=== PATIENT | male | born 1990 | race Caucasian/White ===

== ENCOUNTER 2024-09-03 23:16 | Observation (INO) | payer BC ==
[2024-09-03] MEDS ORDERED: DILTIAZEM 125 MG in SODIUM CHLORIDE 0.9% 100 ML IV SCH (23:45)
[2024-09-04] MEDS: ADENOSINE 3 MG/ML 2 ML VIAL IVP STA ×3 (00:04→00:05)
[2024-09-04] MEDS: SODIUM CHLORIDE 0.9% 1,000 ML IV STA (00:05)
[2024-09-04] MEDS: DILTIAZEM DRIP BOLUS FROM BAG 1 MG SOLN IV ONE (00:10)
[2024-09-04 00:15] LABS: Basophils # (A) 0.1 k/uL (0-0.2); Basophils % (A) 1 %; Eosinophils # (A) 0.1 k/uL (0-0.7); Eosinophils % (A) 1 %; HCT 46.5 % (39.0-53.0); HGB 15.3 gm/dL (13.0-17.5); Lymphocytes % (A) 29 %; MCH 28.7 pg (25.0-35.0); MCV 87.1 fL (80.0-100.0); Mean Platelet Volume 6.6; Monocytes # (A) 0.6 k/uL (0-1.0); Monocytes % (A) 5 %; Neutrophils # (A) 6.4 k/uL (1.3-7.7); Neutrophils % (A) 62 %; Platelet Count 339 k/uL (150-450); RBC 5.33 m/uL (4.30-5.90); RDW 13.2 % (11.5-15.5); WBC 10.3 k/uL (3.8-10.6)
[2024-09-04] MEDS: DILTIAZEM 125 MG in SODIUM CHLORIDE 0.9% 100 ML IV SCH (00:19)
[2024-09-04] MEDS: MAGNESIUM SULFATE-D5W PMX 2 GM in DEXTROSE/WATER 1 100ML.BAG IVPB STA (00:22)
[2024-09-04 00:26] LABS: Partial Thromboplastin Time 22.1 sec (22.0-30.0); Prothrombin Time 10.7 sec (10.0-12.5)
[2024-09-04 00:27] LABS: ALT 43 U/L (4-49); AST 38 U/L (17-59); African American GFR (CKD) >90 (>60 ml/min/1.73 sqM); Albumin 4.6 g/dL (3.5-5.0); Alkaline Phosphatase 87 U/L (38-126); Anion Gap 9 mmol/L; Blood Urea Nitrogen 15 mg/dL (9-20); Calcium 9.2 mg/dL (8.4-10.2); Carbon Dioxide 21 mmol/L (22-30); Chloride 109 mmol/L (98-107); Glucose 116 mg/dL (74-99); Magnesium 1.8 mg/dL (1.6-2.3); Non-African American GFR(CKD) >90 (>60 ml/min/1.73 sqM); Potassium 3.7 mmol/L (3.5-5.1); Sodium 139 mmol/L (137-145); Total Bilirubin 0.9 mg/dL (0.2-1.3); Total Protein 8.2 g/dL (6.3-8.2)
--- NOTE | 2024-09-04 00:37 | ED ---
Dizziness HPI - General Chief Complaint: Syncope Stated Complaint: Syncope Time Seen by Provider: 09/03/24 23:31 Source: patient Mode of arrival: ambulatory Limitations: no limitations - History of Present Illness Initial Comments: Patient is a 34-year-old male with past medical history of COPD presenting today for syncopal episode. Patient states at home grocery stopping started feeling heavy in his legs and lost consciousness. Did not hit his head. It was out for about 30 seconds no seizure activity noted. No history of seizures. No tongue biting or urinary incontinence. States he has felt palpitations since 1:00 this afternoon and attributed them to anxiety. States he is starting to feel improved though did feel lightheaded and dizzy. He denies any chest pain or shortness of breath. Denies nausea vomiting or abdominal pain. Denies recent fevers or chills. No history of CAD/ACS. Does a current smoker - Related Data Previous Rx's Medication Instructions Recorded Aspirin 81 mg PO DAILY tab 09/05/24 Metoprolol Succinate (ER) [Toprol 25 mg PO DAILY #90 tab 09/05/24 XL] Allergies Allergy/AdvReac Type Severity Reaction Status Date / Time No Known Allergies Allergy Verified 09/04/24 09:15 Review of Systems ROS Statement: Those systems with pertinent positive or pertinent negative responses have been documented in the HPI. ROS Other: All systems not noted in ROS Statement are negative. Past Medical History Past Medical History: No Reported History History of Any Multi-Drug Resistant Organisms: None Reported Additional Past Surgical History / Comment(s): varicose vein removal 2022 left lower extremity, high function Autism Past Psychological History: No Psychological Hx Reported, ADD/ADHD, Depression Smoking Status: Current some day smoker Past Alcohol Use History: Rare Past Drug Use History: Marijuana General Exam - General Exam Comments Initial Comments: PE: CONSTITUTIONAL: No apparent distress, well appearing SKIN: Warm, pale, damp, no jaundice, hives or petechiae EYES: Pupils are equally round, extraocular movements intact without nystagmus, clear conjunctiva, non-icteric sclera HENT: Normocephalic, atraumatic, moist mucus membranes, oropharynx clear without exudates NECK: , Full range of motion, normal appearance PULMONARY: Clear to auscultation without wheezes, rhonchi, or rales, normal excursion, no accessory muscle use and no stridor CARDIOVASCULAR: Tachycardia regularly rhythm, normal S1 and S2. No appreciated murmurs, rubs or gallops. Strong radial pulses with intact distal perfusion. No lower extremity edema GASTROINTESTINAL: Soft, active bowel sounds throughout, non-tender, non- distended, no palpable masses, no rebound or guarding. No hepatosplenomegaly MUSCULOSKELETAL: Extremities have no gross deformity, no edema, redness, or swelling. No calf swelling NEUROLOGIC:_a/o x 3, GCS 15, normal mentation and speech. Moves all extremities x 4 without motor or sensory deficit PSYCHIATRIC:_normal mood and affect, thought process is clear and linear Limitations: no limitations Course Vital Signs 09/03/24 09/04/24 09/04/24 23:19 00:33 01:00 EDT Temperature 97.5 F L Pulse Rate 165 H 160 H 161 H Pulse Rate [ Pulse Oximetery ] Respiratory 20 20 16 Rate Blood Pressure 118/84 105/63 103/65 Blood Pressure [Left Arm] O2 Sat by Pulse 98 100 100 Oximetry 09/04/24 09/04/24 09/04/24 01:30 EDT 01:12 EST 02:05 Temperature Pulse Rate 110 H 114 H 114 H Pulse Rate [ Pulse Oximetery ] Respiratory 20 18 18 Rate Blood Pressure 95/66 95/69 95/69 Blood Pressure [Left Arm] O2 Sat by Pulse 97 97 97 Oximetry 09/04/24 09/04/24 09/04/24 03:03 04:39 06:28 Temperature Pulse Rate 99 101 H 85 Pulse Rate [ Pulse Oximetery ] Respiratory 14 16 12 Rate Blood Pressure 103/62 91/57 119/89 Blood Pressure [Left Arm] O2 Sat by Pulse 94 L 96 95 Oximetry 09/04/24 09/04/24 09/04/24 07:55 08:12 12:55 Temperature 97.6 F 97.7 F Pulse Rate 83 89 Pulse Rate [ Pulse Oximetery ] Respiratory 15 17 Rate Blood Pressure 120/90 111/81 Blood Pressure [Left Arm] O2 Sat by Pulse 96 96 96 Oximetry 09/04/24 09/04/24 09/04/24 15:13 18:41 19:59 Temperature 97.7 F Pulse Rate 85 92 95 Pulse Rate [ Pulse Oximetery ] Respiratory 18 16 18 Rate Blood Pressure 107/69 119/74 127/77 Blood Pressure [Left Arm] O2 Sat by Pulse 98 97 97 Oximetry 09/04/24 20:00 Temperature 97.6 F Pulse Rate Pulse Rate [ 87 Pulse Oximetery ] Respiratory 16 Rate Blood Pressure Blood Pressure 133/91 [Left Arm] O2 Sat by Pulse 98 Oximetry EKG Findings - EKG Comments: EKG Findings:: Supraventricular tachycardia, rate 162 bpm, AR interval unable to determine, QRS duration 96 ms, QT/QTc 284/374 ms, left axis deviation, no STEMI, evaluation is limited by rate. Repeat EKG performed 1:57 AM, shows atrial flutter with RVR, rate 108 bpm, QRS duration 113 ms, QT/QTc 345/408 ms, normal axis, no ST elevations or depressions Medical Decision Making - Medical Decision Making Was pt. sent in by a medical professional or institution (SARAHI Taylor, HOSPITAL CHIEF EXECUTIVE OFFICER, urgent care, hospital, or senior living...) When possible be specific @ -No Did you speak to anyone other than the patient for history (EMS, parent, family, police, friend...)? What history was obtained from this source @ -No Did you review nursing and triage notes (agree or disagree)? Why? @ -I reviewed nursing and triage notes Were old charts reviewed (outside hosp., previous admission, EMS record, old EKG, old radiological studies, urgent care reports/EKG's, senior living records)? Report findings @ -Medical records reviewed Differential Diagnosis (chest pain, altered mental status, abdominal pain women, abdominal pain men, vaginal bleeding, weakness, fever, dyspnea, syncope, headache, dizziness, GI bleed, back pain, seizure, CVA, palpatations, mental health, musculoskeletal)? @ -Differential Syncope: Valvular disease, hypertrophic cardiomyopathy, tamponade, arrythmia, ACS, hypovolemia, anemia, seizure, hypoglycemia, this is not meant to be an all- inclusive list. EKG interpreted by me (3pts min.). @ -As above X-rays interpreted by me (1pt min.). @ See below CT interpreted by me (1pt min.). @ -None done U/S interpreted by me (1pt. min.). @ -None done What testing was considered but not performed or refused? (CT, X-rays, U/S, labs)? Why? @ -None What meds were considered but not given or refused? Why? @ -None Did you discuss the management of the patient with other professionals (aura fonseca i.e. , PA, HOSPITAL CHIEF EXECUTIVE OFFICER, lab, RT, psych nurse, case management social worker, police dispatcher, teacher, special assets officer, case filler)? Give summary @ -No Was smoking cessation discussed for >3mins.? @ -No Was critical care preformed (if so, how long)? @ Yes 45 minutes Were there social determinants of health that impacted care today? How? (Homelessness, low income, unemployed, alcoholism, drug addiction, transportation, low edu. Level, literacy, decrease access to med. care, nursing home, rehab)? @ -No Was there de-escalation of care discussed even if they declined (Discuss DNR or withdrawal of care, Hospice)? @ -No What co-morbidities impacted this encounter? (DM, HTN, Smoking, COPD, CAD, Cancer, CVA, ARF, Chemo, Hep., AIDS, mental health diagnosis, sleep apnea, morbid obesity)? @ -None Was patient admitted / discharged? Hospital course, mention meds given and route, prescriptions, significant lab abnormalities, going to OR and other pertinent info. @ -Admission- Patient is at the previous healthy 34-year-old gentleman history of COPD presenting for syncopal episode. Appear to be in SVT on arrival. Blood pres sure stable. Vagal mechanisms were attempted including blowing through a straw and bearing down however patient did not have resolution of tachycardia. Patient was given 6 mg adenosine without resolution of rhythm. 12 mg adenosine was given, patient appeared to be in a flutter briefly and then went back into SVT. Additional 12 mg adenosine given, patient again appeared to go into a flutter briefly and went back into SVT. Patient remained hemodynamically stable throughout this time. Will initiate 20 mg Cardizem bolus and Cardizem drip. Discussed with patient plan for chest x-ray, labs and Cardizem. Patient agreeable plan. Labs reviewed. Grossly within normal limits. Abnormal values not concerning for acute pathology related to presenting complaint. Chest x-ray reviewed, showed cardiomegaly otherwise no consolidations, pleural effusions or pulmonary edema on my review. Patient remained tachycardic despite Cardizem, given 5 mg of Toprol. On my reassessment rate did come down to 110 to 120 bpm shortly after leaving patient's room heart rate went back up to 160. If maintains this will give another dose of metoprolol. At this point plan for admission for persistent tachycardia, patient agreeable with plan. HR did improve prior to admission, ~110, appeared to be in a flutter with RvR. Heparin ordered should patient continue to fail to convert and require electric cardioversion during admission. Discussed case with HOLLIS Mosquera, kindly accepts patient for admission. Undiagnosed new problem with uncertain prognosis? @ -No Drug Therapy requiring intensive monitoring for toxicity (Heparin, Nitro, Insulin, Cardizem)? @ -heparin Were any procedures done? @ -No Diagnosis/symptom? @ SVT, atrial flutter with RvR, syncopee Acute, or Chronic, or Acute on Chronic? @ acute Uncomplicated (without systemic symptoms) or Complicated (systemic symptoms)? @ complicated Side effects of treatment? @ -No Exacerbation, Progression, or Severe Exacerbation? @ -No Poses a threat to life or bodily function? How? (Chest pain, USA, CA, pneumonia, PE, COPD, DKA, ARF, appy, cholecystitis, CVA, Diverticulitis, Homicidal, Suicidal, threat to staff... and all critical care pts) @ -yes - Lab Data Result diagrams: 09/03/24 23:56 09/04/24 11:47 Lab Results 09/03/24 09/03/24 09/03/24 Range/Units 23:56 23:56 23:56 WBC 10.3 (3.8-10.6) k/uL RBC 5.33 (4.30-5.90) m/uL Hgb 15.3 (13.0-17.5) gm/dL Hct 46.5 (39.0-53.0) % MCV 87.1 (80.0-100.0) fL MCH 28.7 (25.0-35.0) pg MCHC 33.0 (31.0-37.0) g/dL RDW 13.2 (11.5-15.5) % Plt Count 339 (150-450) k/uL MPV 6.6 Neutrophils % 62 % Lymphocytes % 29 % Monocytes % 5 % Eosinophils % 1 % Basophils % 1 % Neutrophils # 6.4 (1.3-7.7) k/uL Lymphocytes # 3.0 (1.0-4.8) k/uL Monocytes # 0.6 (0-1.0) k/uL Eosinophils # 0.1 (0-0.7) k/uL Basophils # 0.1 (0-0.2) k/uL PT 10.7 (10.0-12.5) sec INR 1.0 (<1.2) APTT 22.1 (22.0-30.0) sec Sodium 139 (137-145) mmol/L Potassium 3.7 (3.5-5.1) mmol/L Chloride 109 H (98-107) mmol/L Carbon Dioxide 21 L (22-30) mmol/L Anion Gap 9 mmol/L BUN 15 (9-20) mg/dL Creatinine 0.97 (0.66-1.25) mg/dL Est GFR (CKD-EPI)AfAm >90 (>60 ml/min/1.73 sqM) Est GFR (CKD-EPI)NonAf >90 (>60 ml/min/1.73 sqM) Glucose 116 H (74-99) mg/dL Calcium 9.2 (8.4-10.2) mg/dL Magnesium 1.8 (1.6-2.3) mg/dL Total Bilirubin 0.9 (0.2-1.3) mg/dL AST 38 (17-59) U/L ALT 43 (4-49) U/L Alkaline Phosphatase 87 (38-126) U/L Troponin I (0.000-0.034) ng/mL Total Protein 8.2 (6.3-8.2) g/dL Albumin 4.6 (3.5-5.0) g/dL TSH 0.487 (0.465-4.680) mIU/L 09/03/24 Range/Units 23:56 WBC (3.8-10.6) k/uL RBC (4.30-5.90) m/uL Hgb (13.0-17.5) gm/dL Hct (39.0-53.0) % MCV (80.0-100.0) fL MCH (25.0-35.0) pg MCHC (31.0-37.0) g/dL RDW (11.5-15.5) % Plt Count (150-450) k/uL MPV Neutrophils % % Lymphocytes % % Monocytes % % Eosinophils % % Basophils % % Neutrophils # (1.3-7.7) k/uL Lymphocytes # (1.0-4.8) k/uL Monocytes # (0-1.0) k/uL Eosinophils # (0-0.7) k/uL Basophils # (0-0.2) k/uL PT (10.0-12.5) sec INR (<1.2) APTT (22.0-30.0) sec Sodium (137-145) mmol/L Potassium (3.5-5.1) mmol/L Chloride (98-107) mmol/L Carbon Dioxide (22-30) mmol/L Anion Gap mmol/L BUN (9-20) mg/dL Creatinine (0.66-1.25) mg/dL Est GFR (CKD-EPI)AfAm (>60 ml/min/1.73 sqM) Est GFR (CKD-EPI)NonAf (>60 ml/min/1.73 sqM) Glucose (74-99) mg/dL Calcium (8.4-10.2) mg/dL Magnesium (1.6-2.3) mg/dL Total Bilirubin (0.2-1.3) mg/dL AST (17-59) U/L ALT (4-49) U/L Alkaline Phosphatase (38-126) U/L Troponin I 0.023 (0.000-0.034) ng/mL Total Protein (6.3-8.2) g/dL Albumin (3.5-5.0) g/dL TSH (0.465-4.680) mIU/L Disposition Clinical Impression: SVT (supraventricular tachycardia), Atrial flutter with rapid ventricular response Disposition: ADMITTED IP TO THIS HOSP Condition: Stable
--- NOTE | 2024-09-04 00:58 | XR ---
EXAMINATION TYPE: XR chest 2V DATE OF EXAM: 09/04/2024 COMPARISON: NONE HISTORY: Dysrhythmia. TECHNIQUE: Frontal and lateral views of the chest are obtained. FINDINGS: Evaluation slightly suboptimal secondary to patient's large body habitus. Low lung volumes are present. There is no focal air space opacity, pleural effusion, or pneumothorax seen. The cardia c silhouette size is enlarged. The osseous structures are intact. IMPRESSION: Suboptimal study. Cardiomegaly without acute pulmonary process identified. [facility], , 09/04/2024 12:55 AM
[2024-09-04] MEDS: METOPROLOL TARTRATE 5 MG/5 ML VIAL IVP STA (01:16)
[2024-09-04] MEDS: HEPARIN SODIUM 1,000 UN/ML (10ML VL) IV ONE (01:53)
[2024-09-04] MEDS: HEPARIN SOD,PORK IN 0.45% NACL 25,000 UNIT in 0.45% NACL 1 250ML.BAG IV SCH (01:54)
[2024-09-04] MEDS ORDERED: ACETAMINOPHEN TAB 325 MG TAB PO PRN (02:18)
[2024-09-04] MEDS ORDERED: CALCIUM CARBONATE 500 MG CHEWABLE PO PRN (02:18)
[2024-09-04] MEDS ORDERED: PROCHLORPERAZINE 5 MG TAB PO PRN (02:18)
[2024-09-04] MEDS ORDERED: NALOXONE 0.4 MG/ML 1 ML VIAL IV PRN (02:18)
[2024-09-04] MEDS ORDERED: traMADol 50 MG TAB PO PRN (02:18)
[2024-09-04] MEDS ORDERED: MAG HYDROX/AL HYDROX/SIMETH 30 ML CUP PO PRN (02:18)
[2024-09-04 06:22] LABS: Amphetamine Screen,Urine Not Detected (NotDetected); Barbiturate Screen,Urine Not Detected (NotDetected); Benzodiazepines Screen,Urine Not Detected (NotDetected); Cocaine Screen,Urine Not Detected (NotDetected); Methadone Screen, Urine Not Detected (NotDetected); Opiate Screen,Urine Not Detected (NotDetected); Oxycodone Screen, Urine Not Detected (NotDetected); Phencyclidine Screen,Urine Not Detected (NotDetected); Tricyclic Antidepressant,Urine Not Detected (NotDetected); Urn Cannabinoid Scrn Detected (NotDetected)
--- NOTE | 2024-09-04 08:19 | P.CRDCN ---
History of Present Illness Consult date: 09/04/24 History of present illness: The patient is a pleasant 34-year-old gentleman with a past medical history significant for overweight and according to him hypertension not on any medication at home as well as marijuana use. He was brought to the hospital by his yesterday after he did have an episode of syncope witnessed by his . He was in his usual state of health where he was at home trying to stand up and suddenly he felt dizzy and lightheaded and then he lost his consciousness for about 15 seconds. No other cardiovascular symptoms of any chest pain or chest discomfort or shortness of breath. No prior medical or cardiac history including any CAD or hypertension or dyslipidemia or diabetes or history of heart failure or cardiac arrhythmia and never seen by delivery specialist before. He stated that his pressure has been elevated at home not on any medications. According to his he does not snore during the night. He is overweight. He underwent further evaluation including an EKG and that showed what it seems to be an atrial flutter and also he underwent first set of troponin came in to be unremarkable chest x-ray did not show any acute abnormalities. TSH came to be at 0.4 which is borderline low. Subsequently the patient was started on Cardizem IV and converted to normal sinus mechanism and has been maintaining normal sinus mechanism. The physical examination is remarkable for regular rhythm with a soft systolic murmur at the apical area and clear breathing sounds bilaterally and no edema was noted in the lower extremities Assessment Cardiac arrhythmia with atrial flutter An episode of syncope Overweight Marijuana use Plan Rule out thyroid disease Sleep apnea to be ruled as an outpatient Start the patient on beta-khoi orally Does not need any oral anticoagulation since his [id number] score is almost 0. But we will wait on starting the heparin till we get more sets of cardiac enzymes Obtain an echocardiogram with Doppler for further risk stratification Monitor the patient overnight Follow-up with the patient Past Medical History Past Medical History: No Reported History History of Any Multi-Drug Resistant Organisms: None Reported Additional Past Surgical History / Comment(s): varicose vein removal 2022 left lower extremity, high function Autism Past Psychological History: No Psychological Hx Reported, ADD/ADHD, Depression Smoking Status: Current some day smoker Past Alcohol Use History: Rare Past Drug Use History: Marijuana Medications and Allergies Allergies Allergy/AdvReac Type Severity Reaction Status Date / Time No Known Allergies Allergy Verified 09/03/24 23:18 Physical Exam Vitals: Vital Signs Temp Pulse Resp BP Pulse Ox 09/04/24 08:12 96 09/04/24 07:55 97.6 F 83 15 120/90 96 09/04/24 06:28 85 12 119/89 95 09/04/24 04:39 101 H 16 91/57 96 09/04/24 03:03 99 14 103/62 94 L 09/04/24 02:05 114 H 18 95/69 97 09/04/24 01:12 EST 114 H 18 95/69 97 09/04/24 01:30 EDT 110 H 20 95/66 97 09/04/24 01:00 EDT 161 H 16 103/65 100 09/04/24 00:33 160 H 20 105/63 100 09/03/24 23:19 97.5 F L 165 H 20 118/84 98 Intake and Output 09/03/24 09/04/24 09/04/24 23:59 06:59 14:59 Intake Total Output Total Balance Intake: Intake, IV Titration Amount Diltiazem 125 mg In Sodium Chloride 0.9% 100 ml @ 5 MG/HR 5 mls/hr IV .Q24H [facility] Rx#:[id number] Output: Urine Other: Weight Results 09/03/24 23:56 09/03/24 23:56 Cardiac Enzymes 09/03/24 09/03/24 Range/Units 23:56 23:56 AST 38 (17-59) U/L Troponin I 0.023 (0.000-0.034) ng/mL Coagulation 09/03/24 09/04/24 Range/Units 23:56 07:15 PT 10.7 (10.0-12.5) sec APTT 22.1 25.0 (22.0-30.0) sec CBC 09/03/24 Range/Units 23:56 WBC 10.3 (3.8-10.6) k/uL RBC 5.33 (4.30-5.90) m/uL Hgb 15.3 (13.0-17.5) gm/dL Hct 46.5 (39.0-53.0) % Plt Count 339 (150-450) k/uL Comprehensive Metabolic Panel 09/03/24 Range/Units 23:56 Sodium 139 (137-145) mmol/L Potassium 3.7 (3.5-5.1) mmol/L Chloride 109 H (98-107) mmol/L Carbon Dioxide 21 L (22-30) mmol/L BUN 15 (9-20) mg/dL Creatinine 0.97 (0.66-1.25) mg/dL Glucose 116 H (74-99) mg/dL Calcium 9.2 (8.4-10.2) mg/dL AST 38 (17-59) U/L ALT 43 (4-49) U/L Alkaline Phosphatase 87 (38-126) U/L Total Protein 8.2 (6.3-8.2) g/dL Albumin 4.6 (3.5-5.0) g/dL Current Medications Generic Name Dose Route Start Last Admin Trade Name Freq PRN Reason Stop Dose Admin Acetaminophen 650 mg 09/04/24 02:18 Acetaminophen Tab 325 Mg Tab PO Q6HR PRN Mild Pain or Fever > 100.5 Al Hydroxide/Mg Hydroxide 15 ml 09/04/24 02:18 Mag Hydrox/Al Hydrox/Simeth 30 Ml Cup PO Q6HR PRN Indigestion Calcium Carbonate/Glycine 1,000 mg 09/04/24 02:18 Calcium Carbonate 500 Mg Chewable PO Q4HR PRN Dyspepsia Famotidine 20 mg 09/04/24 09:00 Famotidine 20 Mg Tab PO BID JOSEPH Diltiazem HCl 125 mg/ Sodium 125 mls @ 5 mls/hr 09/04/24 00:19 09/04/24 01:26 EST Chloride IV 5 mg/hr .Q24H JOSEPH 5 mls/hr Infusion Protocol 5 MG/HR Heparin Sodium/Sodium Chloride 250 mls @ 10 mls/hr 09/04/24 01:45 EST 09/04/24 01:54 EST 25,000 unit/ Sodium Chloride IV 6.8894 units/kg/hr .Q24H JOSEPH 10 mls/hr Administration Protocol 6.8894 UNITS/KG/HR Naloxone HCl 0.2 mg 09/04/24 02:18 Naloxone 0.4 Mg/Ml 1 Ml Vial IV Q2M PRN Opioid Reversal Prochlorperazine Maleate 5 mg 09/04/24 02:18 Prochlorperazine 5 Mg Tab PO Q8HR PRN Nausea And Vomiting Tramadol HCl 50 mg 09/04/24 02:18 Tramadol 50 Mg Tab PO Q6H PRN Moderate Pain (Scale 4 to 6) Intake and Output 09/03/24 09/04/24 09/04/24 23:59 06:59 14:59 Intake Total Output Total Balance Intake: Intake, IV Titration Amount Diltiazem 125 mg In Sodium Chloride 0.9% 100 ml @ 5 MG/HR 5 mls/hr IV .Q24H [facility] Rx#:[id number] Output: Urine Other: Weight 09/03/24 23:56 09/03/24 23:56
[2024-09-04] MEDS: METOPROLOL TARTRATE 25 MG TAB PO SCH (09:36)
[2024-09-04] MEDS: FAMOTIDINE 20 MG TAB PO SCH (09:36)
[2024-09-04 12:17] LABS: ALT 36 U/L (4-49); AST 29 U/L (17-59); African American GFR (CKD) >90 (>60 ml/min/1.73 sqM); Albumin 3.9 g/dL (3.5-5.0); Alkaline Phosphatase 66 U/L (38-126); Anion Gap 4 mmol/L; Blood Urea Nitrogen 14 mg/dL (9-20); Calcium 8.7 mg/dL (8.4-10.2); Carbon Dioxide 22 mmol/L (22-30); Chloride 112 mmol/L (98-107); Glucose 102 mg/dL (74-99); Non-African American GFR(CKD) >90 (>60 ml/min/1.73 sqM); Potassium 3.6 mmol/L (3.5-5.1); Sodium 138 mmol/L (137-145); Total Bilirubin 0.8 mg/dL (0.2-1.3); Total Protein 6.9 g/dL (6.3-8.2)
[2024-09-04] MEDS: HEPARIN SODIUM 1,000 UN/ML (10ML VL) IV PRN (16:17)
[2024-09-04 20:57] VITALS: RESP 16
--- NOTE | 2024-09-04 21:24 | P.HPIM ---
History of Present Illness H&P Date: 09/04/24 Chief Complaint: Syncope Patient is a 34-year-old male with a known history of varicose veins status post left lower extremity vein stripping, daily marijuana use and high function autism presents to ER with complaints of syncopal episode. Patient states that he was at home and started having feeling heavy in his legs and lost consciousness. Patient felt cold and clammy. Denied any hitting his head. Patient states that he passed about 30 seconds and no witnessed seizures. No no bowel or bladder incontinence. Patient also states that he felt palpitations since 1 PM today afternoon and activated him to anxiety. Denies any chest pain or shortness of breath. No nausea vomiting abdominal pain or diarrhea. Denies any recent illnesses. EKG on admission showed supraventricular tachycardia. Patient was given a dose of metoprolol 5 mg IV push in the ER. Chest x-ray showed suboptimal study. Cardiomegaly without acute pulmonary process identified. Laboratory data showed showed sodium 139 potassium 3.7 chloride 109 bicarb is 21 BUN 15 and creatinine 0.97 blood sugar 116 liver enzymes not elevated troponin x 3 negative TSH 0.487 UDS is positive for marijuana Review of Systems Constitutional: Patient denies any fever or chills . No generalized weakness or weight loss. Abdomen: Patient denied nausea vomiting and diarrhea and abdominal pain. Cardiovascular: Patient denies any chest pain or short of breath no palpitations. Respiratory: patient denied any cough or sputum production. No shortness of breath Neurologic: Patient denied any numbness or tingling. no headache. Musculoskeletal: Patient denies any complaints of joint swelling or deformity. Skin: Negative Psychiatric: Negative Endocrine: No heat or cold intolerance. No recent weight gain. Genitourinary: No dysuria or hematuria. All other 14 point ROS negative except the above Past Medical History Past Medical History: No Reported History History of Any Multi-Drug Resistant Organisms: None Reported Additional Past Surgical History / Comment(s): varicose vein removal 2022 left lower extremity, high function Autism Past Psychological History: No Psychological Hx Reported, ADD/ADHD, Depression Smoking Status: Current some day smoker Past Alcohol Use History: Rare Past Drug Use History: Marijuana Medications and Allergies Home Medications Medication Instructions Recorded Confirmed Type No Known Home Medications 09/04/24 09/04/24 History Allergies Allergy/AdvReac Type Severity Reaction Status Date / Time No Known Allergies Allergy Verified 09/04/24 09:15 Physical Exam Vitals: Vital Signs Temp Pulse Resp BP Pulse Ox 09/04/24 08:12 96 09/04/24 07:55 97.6 F 83 15 120/90 96 09/04/24 06:28 85 12 119/89 95 09/04/24 04:39 101 H 16 91/57 96 09/04/24 03:03 99 14 103/62 94 L 09/04/24 02:05 114 H 18 95/69 97 09/04/24 01:12 EST 114 H 18 95/69 97 09/04/24 01:30 EDT 110 H 20 95/66 97 09/04/24 01:00 EDT 161 H 16 103/65 100 09/04/24 00:33 160 H 20 105/63 100 09/03/24 23:19 97.5 F L 165 H 20 118/84 98 Intake and Output 09/03/24 09/04/24 09/04/24 23:59 06:59 14:59 Intake Total Output Total Balance Intake: Intake, IV Titration Amount Diltiazem 125 mg In Sodium Chloride 0.9% 100 ml @ 5 MG/HR 5 mls/hr IV .Q24H [facility] Rx#:[id number] Output: Urine Other: Weight PHYSICAL EXAMINATION: Patient is lying in the bed comfortably, no acute distress, awake alert and oriented. Obese. HEENT: Normocephalic. Neck is supple. Pupils reactive. Nostrils clear. Oral cavity is moist. Neck reveals no JVD, carotid bruits, or thyromegaly. CHEST EXAMINATION: Trachea is central. Symmetrical expansion. Lung lieberman clear to auscultation and percussion. CARDIAC: Normal S1, S2 with no gallops. No murmurs ABDOMEN: Soft. Bowel sounds normal. No organomegaly. No abdominal bruits. Extremities: reveal no edema. No clubbing or cyanosis Neurologically awake, alert, oriented x3 with well-coordinated movements. No focal deficits noted Skin: No rash or skin lesions. Psychiatric: Coperative. Nonsuicidal Musculoskeletal: No joint swelling or deformity. Normal range of motion. Results CBC & Chem 7: 09/03/24 23:56 09/04/24 11:47 Labs: Abnormal Lab Results - Last 24 Hours (Table) 09/03/24 09/04/24 Range/Units 23:56 05:26 Chloride 109 H (98-107) mmol/L Carbon Dioxide 21 L (22-30) mmol/L Glucose 116 H (74-99) mg/dL U Marijuana (THC) Screen Detected H (NotDetected) Thrombosis Risk Factor Assmnt - DVT/VTE Prophylaxis DVT/VTE Prophylaxis: Pharmacologic Prophylaxis ordered Assessment and Plan Assessment: Acute syncopal episode likely due to cardiac arrhythmia Atrial flutter new onset Marijuana use disorder Obesity with BMI 39.0 Varicose veins bilateral lower extremity with history of left lower extremity venous stripping DVT prophylaxis with heparin subcu Plan: I have patient will continue on telemonitoring. serial troponin x 3 negative. Patient was started on Cardizem drip for rate control. Also started on metoprolol 25 mg twice daily. Cardiology was consulted. Patient [id number]- VASc score is 0. Heart rate is improved now. Cardiology is on board. 2D echocardiogram was ordered. Continue to follow closely. Patient will need outpatient follow-up for sleep study. TSH within normal limits. Time with Patient: Greater than 30
[2024-09-05 09:23] VITALS: BP 143/97; PULSE 89; TEMP 97.5
--- NOTE | 2024-09-05 11:45 | P.DS ---
Providers Date of admission: 09/04/24 02:20 Expected date of discharge: 09/05/24 Attending physician: Homar Lord MD Consults: 09/04/24 02:18 Consult Physician Routine Consulting Provider: Rylan Maurer Consult Reason/Comments: SVT/ A flutter Do you want consulting provider notified?: Yes, Notify in am Primary care physician: ASHWIN Bob Hospital Course: Final Diagnoses: Acute syncopal episode likely due to cardiac arrhythmia Atrial flutter new onset Marijuana use disorder Obesity with BMI 39.0 Ongoing nicotine dependence, marijuana use,cessation reinforced. ADD, ADHD, depression, high functioning autism Varicose veins bilateral lower extremity with history of left lower extremity venous stripping Hospital course: Patient is a 34-year-old male with a known history of varicose veins status post left lower extremity vein stripping, daily marijuana use and high function autism presents to ER with complaints of syncopal episode. Patient states that he was at home and started having feeling heavy in his legs and lost consciousness. Patient felt cold and clammy. Denied any hitting his head. Patient states that he passed about 30 seconds and no witnessed seizures. No no bowel or bladder incontinence. Patient also states that he felt palpitations since 1 PM today afternoon and activated him to anxiety. Denies any chest pain or shortness of breath. No nausea vomiting abdominal pain or diarrhea. Denies any recent illnesses. EKG on admission showed supraventricular tachycardia. Patient was given a dose of metoprolol 5 mg IV push in the ER. Chest x-ray showed suboptimal study. Cardiomegaly without acute pulmonary process identified. Laboratory data showed showed sodium 139 potassium 3.7 chloride 109 bicarb is 21 BUN 15 and creatinine 0.97 blood sugar 116 liver enzymes not elevated troponin x 3 negative TSH 0.487 UDS is positive for marijuana. serial troponin x 3 negative. Patient was started on Cardizem drip for rate control. Also started on metoprolol 25 mg twice daily. Cardiology was consulted. Patient [id number] score is 0. Heart rate is improved now. Cardiology is on board. 2D echocardiogram was ordered. Continue to follow closely. Patient will need outpatient follow-up for sleep study. TSH within normal limits. Significant clinical improvement .telemetry reporting no further arrhythmia, sinus rhythm, TSH within normal limits. Denies chest pain, palpitations or shortness of breath. Cleared by cardiology for discharge on metoprolol and aspirin. Patient will be discharged home today in a stable condition with guarded prognosis. The impression and plan of care has been dictated as directed. : I performed a history and examination of this patient, discussed the same with the dictator. I agree with the dictator's note ,documented as a scribe. Any additional findings or plans will be noted. Patient Condition at Discharge: Stable Plan - Discharge Summary Discharge Rx Participant: No New Discharge Prescriptions: New Aspirin 81 mg PO DAILY tab Metoprolol Succinate (ER) [Toprol XL] 25 mg PO DAILY #90 tab Discharge Medication List Aspirin 81 mg PO DAILY tab 09/05/24 [Rx] Metoprolol Succinate (ER) [Toprol XL] 25 mg PO DAILY #90 tab 09/05/24 [Rx] Follow up Appointment(s)/Referral(s): Jesus Ross MD [STAFF PHYSICIAN] - 1 Week Yesy Carson PAC [Primary Care Provider] - 1 Week
--- NOTE | 2024-09-05 16:00 | P.PN ---
Subjective Progress Note Date: 09/05/24 History of present illness: The patient is a pleasant 34-year-old gentleman with a past medical history significant for overweight and according to him hypertension not on any med ication at home as well as marijuana use. He was brought to the hospital by his yesterday after he did have an episode of syncope witnessed by his . He was in his usual state of health where he was at home trying to stand up and suddenly he felt dizzy and lightheaded and then he lost his consciousness for about 15 seconds. No other cardiovascular symptoms of any chest pain or chest discomfort or shortness of breath. 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 He stated that his pressure has been elevated at home not on any medications. According to his he does not snore during the night. He is overweight. He underwent further evaluation including an EKG and that showed what it seems to be an atrial flutter and also he underwent first set of troponin came in to be unremarkable chest x-ray did not show any acute abnormalities. TSH came to be at 0.4 which is borderline low. Subsequently the patient was started on Cardizem IV and converted to normal sinus mechanism and has been maintaining normal sinus mechanism. The physical examination is remarkable for regular rhythm with a soft systolic murmur at the apical area and clear breathing sounds bilaterally and no edema was noted in the lower extremities 09/05 Patient is seen and examined. He is on heparin drip and Cardizem drip which will both be discontinued. He is in a sinus rhythm. Blood pressure 143/97, heart rate 89, pulse ox 97% on room air. Patient states that he drinks 1 Monster drink per day. Recommend discontinuing or decreasing caffeine intake. He denies any alcohol abuse. TSH 0.487. Echocardiogram reveals EF 50 to 55%. The physical examination is remarkable for regular rhythm with a soft systolic murmur at the apical area and clear breathing sounds bilaterally and no edema was noted in the lower extremities Assessment Cardiac arrhythmia with atrial flutter An episode of syncope Overweight Marijuana use Plan Discontinue Cardizem drip and heparin drip. Patient is cleared for discharge with plan for aspirin 81 mg daily and metoprolol succinate 25 mg daily Sleep apnea to be ruled as an outpatient Decrease caffeine intake Does not need any oral anticoagulation since his [id number] score is almost 0. Patient is cleared for discharge from cardiology and may follow-up in the office with Dr. Ross in 1 week. Nurse practitioner note has been reviewed, I agree with documented findings and plan of care. Patient was seen and examined. Objective - Vital Signs Vital signs: Vital Signs Temp 97.5 F L 09/05/24 08:00 Pulse 89 09/05/24 08:00 Resp 16 09/05/24 08:00 BP 143/97 09/05/24 08:00 Pulse Ox 97 09/05/24 08:00 FiO2 Intake & Output 09/04/24 09/05/24 09/05/24 18:59 06:59 18:59 Intake Total 218.167 221.067 240 Balance 218.167 221.067 240 Weight 143 kg Intake: Intake, IV Titration 218.167 221.067 Amount Diltiazem 125 mg In 74.167 Sodium Chloride 0.9% 100 ml @ 5 MG/HR 5 mls/hr IV .Q24H JOSEPH Rx#:[id number] Heparin Sod,Pork in 0.45% 144 221.067 NaCl 25,000 unit In 0.45 % NaCl 1 250ml.bag @ 6. 8894 UNITS/KG/HR 10 mls/ hr IV .Q24H JOSEPH Rx#: [id number] Oral 240 Other: Voiding Method Toilet Urinal # Voids 1 1 # Bowel Movements 0 1 - Labs CBC & Chem 7: 09/03/24 23:56 09/04/24 11:47 Labs: Abnormal Lab Results - Last 24 Hours (Table) 09/04/24 09/04/24 09/05/24 Range/Units 11:47 22:06 05:30 APTT 31.9 H 43.4 H (22.0-30.0) sec Chloride 112 H (98-107) mmol/L Glucose 102 H (74-99) mg/dL
--- NOTE | 2024-09-05 18:06 | CA ---
Transthoracic Echo Report Name: Sukhdev Jackson Age: 34 Gender: M : 1990 Exam Date: 09/05/2024 10:21 Exam Location: [facility] Ht (in): 76 Wt (lb): 320 Ordering Physician: Jesus Ross MD ([id number]) Attending/Referring Phys: Cook Fruit [place] Bains, SAQIB Procedure CPT: Indications: sycopal episode, SVT, a flutter Cardiac Hx: Technical Quality: Fair Contrast 1: Total Dose (mL): Contrast 2: Total Dose (mL): MEASUREMENTS (Male / Female) Normal Values 2D ECHO LV Diastolic Diameter PLAX 5.3 cm 4.2 - 5.9 / 3.9 - 5.3 cm LV Systolic Diameter PLAX 3.6 cm IVS Diastolic Thickness 1.3 cm 0.6 - 1.0 / 0.6 - 0.9 cm LVPW Diastolic Thickness 1.3 cm 0.6 - 1.0 / 0.6 - 0.9 cm LV Relative Wall Thickness 0.5 RV Internal Dim ED PLAX 4.1 cm LA Volume 54.1 cm??? 18 - 58 / 22 - 52 cm??? LA Volume Index 19.0 cm???/m??? 16 - 28 cm???/m??? M-MODE Aortic Root Diameter MM 4.0 cm LA Systolic Diameter MM 3.5 cm LA Ao Ratio MM 0.9 AV Cusp Separation MM 2.1 cm DOPPLER AV Peak Velocity 120.3 cm/s AV Peak Gradient 5.8 mmHg AV Mean Velocity 81.1 cm/s AV Mean Gradient 3.0 mmHg AV Velocity Time Integral 23.4 cm LVOT Peak Velocity 112.4 cm/s LVOT Peak Gradient 5.1 mmHg LVOT Velocity Time Integral 23.4 cm MV Area PHT 4.9 cm??? Mitral E Point Velocity 72.7 cm/s Mitral A Point Velocity 92.8 cm/s Mitral E to A Ratio 0.8 MV Deceleration Time 155.0 ms MV E' Velocity 8.9 cm/s Mitral E to MV E' Ratio 8.2 FINDINGS Left Ventricle Mildly increased left ventricular wall thickness. Left ventricular cavity size normal. Normal left ventricular systolic function with no obvious regional wall motion abnormalities. Left ventricular ejection fraction is estimated at 50-55 %. Grade 1 diastolic dysfunction. Right Ventricle Normal right ventricular size and function. Right ventricular systolic pressure within normal limits. Right Atrium Normal right atrial size. Left Atrium Mildly increased left atrial area. Mitral Valve Structurally normal mitral valve. No mitral stenosis, regurgitation or prolapse. Aortic Valve Trileaflet aortic valve. No aortic stenosis. No aortic regurgitation. Tricuspid Valve Structurally normal tricuspid valve. Trace tricuspid regurgitation. Pulmonic Valve Structurally normal pulmonic valve. Pericardium No pericardial effusion. Aorta Normal size aortic root and proximal ascending aorta. CONCLUSIONS Normal LV function Previewed by: Dr. Esdras Winchester MD (Electronically Signed) Final Date: 05 September 2024 18:05
[2024-09-06] MEDS ORDERED: METOPROLOL SUCCINATE (ER) 25 MG TAB.ER.24H PO SCH (09:00)
[2024-09-06] MEDS ORDERED: ASPIRIN 81 MG PO SCH (09:00)
== END 2024-09-05 12:41 | disposition home or self-care (01) ==
LOC: EC 23:16 → 3SCARD 09-04 02:20
PROVIDERS: ADMIT Family Medicine; ATTEND Family Medicine
DX: I47.10 Supraventricular tachycardia, unspecified (principal); I48.92 Unspecified atrial flutter; I48.20 Chronic atrial fibrillation, unspecified; I51.7 Cardiomegaly; J44.9 Chronic obstructive pulmonary disease, unspecified; I83.93 Asymptomatic varicose veins of bilateral lower extremities; F41.9 Anxiety disorder, unspecified; F32.A Depression, unspecified; F90.2 Attention-deficit hyperactivity disorder, combined type; F84.0 Autistic disorder; E66.9 Obesity, unspecified; Z68.39 Body mass index [BMI] 39.0-39.9, adult; F17.210 Nicotine dependence, cigarettes, uncomplicated; Z79.82 Long term (current) use of aspirin; Z79.899 Other long term (current) drug therapy
CPT/HCPCS: 96376 ×2; 96365; 96375; 99285; 36415; 94760; 93005 ×2; 93306; 80053; 83735; 84443; 84484; 85025; 85610; 85730 ×2; 80306; 71046; G0378 ×2; J0153; J1644 ×3; J3475

== ENCOUNTER 2024-12-01 19:39 | Emergency (ER) | payer BC ==
--- NOTE | 2024-12-01 20:50 | ED ---
General Adult HPI - General Chief complaint: Shortness of Breath Stated complaint: chest pain,L arm numbness Time Seen by Provider: 12/01/24 20:47 Source: patient, RN notes reviewed Mode of arrival: ambulatory Limitations: no limitations - History of Present Illness Initial comments: 35-year-old male with history of SVT presenting to the ER with chief complaint of lightheadedness x 1.5 hours. States he was at work when he began to feel a tingling in his left arm radiating to the fourth and fifth digits. He then began to feel lightheaded as though he was about to pass out. States this feels similar to when he was diagnosed with SVT last September. He attempted to do perform the Valsalva maneuver's which seem to make symptoms worse. He now end orses left-sided chest heaviness and shortness of breath. States he was ill with flu last week. States he had productive cough and a fever which has been mostly resolved. He currently takes metoprolol and baby aspirin and follows with Dr. Ross. He is a current tobacco smoker. - Related Data Previous Rx's Medication Instructions Recorded Aspirin 81 mg PO DAILY tab 09/05/24 Metoprolol Succinate (ER) [Toprol 25 mg PO DAILY #90 tab 09/05/24 XL] Allergies Allergy/AdvReac Type Severity Reaction Status Date / Time No Known Allergies Allergy Verified 12/01/24 19:42 Review of Systems ROS Statement: Those systems with pertinent positive or pertinent negative responses have been documented in the HPI. ROS Other: All systems not noted in ROS Statement are negative. Past Medical History Past Medical History: No Reported History History of Any Multi-Drug Resistant Organisms: None Reported Additional Past Surgical History / Comment(s): varicose vein removal 2022 left lower extremity, high function Autism Past Psychological History: No Psychological Hx Reported, ADD/ADHD, Depression Smoking Status: Current some day smoker Past Alcohol Use History: Rare Past Drug Use History: Marijuana General Exam Limitations: no limitations General appearance: alert, in no apparent distress Head exam: Present: atraumatic, normocephalic, normal inspection Eye exam: Present: normal appearance, PERRL, EOMI. Absent: scleral icterus, conjunctival injection, periorbital swelling ENT exam: Present: normal exam, mucous membranes moist Neck exam: Present: normal inspection. Absent: tenderness, meningismus, lymphadenopathy Respiratory exam: Present: normal lung sounds bilaterally. Absent: respiratory distress, wheezes, rales, rhonchi, stridor Cardiovascular Exam: Present: regular rate, normal rhythm, normal heart sounds. Absent: systolic murmur, diastolic murmur, rubs, gallop, clicks Neurological exam: Present: alert, oriented X3, CN II-XII intact Psychiatric exam: Present: normal affect, normal mood Skin exam: Present: warm, dry, intact, normal color. Absent: rash Course Vital Signs 12/01/24 12/01/24 19:42 22:47 Temperature 98.4 F 98.5 F Pulse Rate 98 76 Respiratory 18 17 Rate Blood Pressure 156/112 130/90 O2 Sat by Pulse 97 97 Oximetry Medical Decision Making - Medical Decision Making Was pt. sent in by a medical professional or institution (, [facility]AH[facility], DENTAL OFFICE RECEPTIONIST, urgent care, hospital, or [place] health care facility...) When possible be specific @ -No Did you speak to anyone other than the patient for history (EMS, parent, family, police, friend...)? What history was obtained from this source @ -No Did you review nursing and triage notes (agree or disagree)? Why? @ -I reviewed and agree with nursing and triage notes Were old charts reviewed (outside hosp., previous admission, EMS record, old EKG, old radiological studies, urgent care reports/EKG's, [place] health care facility records)? Report findings @ -No old charts were reviewed Differential Diagnosis (chest pain, altered mental status, abdominal pain women, abdominal pain men, vaginal bleeding, weakness, fever, dyspnea, syncope, headache, dizziness, GI bleed, back pain, seizure, CVA, palpatations, mental health, musculoskeletal)? @ -Differential Dizziness: Benign paroxysmal positional Vertigo, Meniere's disease, otitis media, acoustic neuroma, vertebrobasilar insufficiency, cerebellar stroke, encephalitis, hypovolemic, arrhythmia, coronary artery syndrome, anemia, this is not meant to be an all-inclusive list EKG interpreted by me (3pts min.). @ -As above X-rays interpreted by me (1pt min.). @ -Chest x-ray reveals no acute process CT interpreted by me (1pt min.). @ -None done U/S interpreted by me (1pt. min.). @ -None done What testing was considered but not performed or refused? (CT, X-rays, U/S, labs)? Why? @ -None What meds were considered but not given or refused? Why? @ -None Did you discuss the management of the patient with other professionals (professionals i.e. , PA, DENTAL OFFICE RECEPTIONIST, lab, RT, psych nurse, social media analyst, store director, teacher, space operations officer, machine adjuster leader case trim)? Give summary @ -No Was smoking cessation discussed for >3mins.? @ -No Was critical care preformed (if so, how long)? @ -No Were there social determinants of health that impacted care today? How? (Homelessness, low income, unemployed, alcoholism, drug addiction, transportation, low edu. Level, literacy, decrease access to med. care, correction, rehab)? @ -No Was there de-escalation of care discussed even if they declined (Discuss DNR or withdrawal of care, Hospice)? DNR status @ -No What co-morbidities impacted this encounter? (DM, HTN, Smoking, COPD, CAD, Cancer, CVA, ARF, Chemo, Hep., AIDS, mental health diagnosis, sleep apnea, morbid obesity)? @ -None Was patient admitted / discharged? Hospital course, mention meds given and route, prescriptions, significant lab abnormalities, going to OR and other p ertinent info. @ -Discharge. This is a 34-year-old male with history of SVT presenting for dizziness x 2 hours with associated left arm numbness and chest pain. States this feels similar to previous SVT episodes. Patient is initially hypertensive at 156/112 otherwise vital signs are within acceptable limits. Heart and lungs clear to auscultation bilaterally. Patient is provided with IV fluids. EKG reveals normal sinus rhythm with no ST changes. Chest x-ray reveals no acute process. Lab work including CBC, CMP, troponin, D-dimer, magnesium, coags unremarkable. Upon reevaluation, patient reports improvement of symptoms. Blood pressure reduced to 130/90. Discussed results with patient. Heart score is 2. Symptoms are likely due to episode of SVT given patient's history however symptoms have resolved and workup is unremarkable. I believe it is safe to discharge patient home at this time with strict return precautions and close follow-up. Patient is agreeable to this plan. Case was discussed with my ED attending Dr. Link Undiagnosed new problem with uncertain prognosis? @ -No Drug Therapy requiring intensive monitoring for toxicity (Heparin, Nitro, Insulin, Cardizem)? @ -No Were any procedures done? @ -No Diagnosis/symptom? @ -Dizziness Acute, or Chronic, or Acute on Chronic? @ -Acute Uncomplicated (without systemic symptoms) or Complicated (systemic symptoms)? @ -Complicated Side effects of treatment? @ -No Exacerbation, Progression, or Severe Exacerbation? @ -No Poses a threat to life or bodily function? How? (Chest pain, [place], RI, pneumonia, PE, COPD, DKA, ARF, appy, cholecystitis, CVA, Diverticulitis, Homicidal, Suicidal, threat to staff... and all critical care pts) @ -Unlikely at this time - Lab Data Result diagrams: 12/01/24 21:05 12/01/24 21:05 Lab Results 12/01/24 12/01/24 12/01/24 Range/Units 21:05 21:05 21:05 WBC 8.3 (3.8-10.6) k/uL RBC 4.67 (4.30-5.90) m/uL Hgb 13.4 (13.0-17.5) gm/dL Hct 39.5 (39.0-53.0) % MCV 84.5 (80.0-100.0) fL MCH 28.7 (25.0-35.0) pg MCHC 33.9 (31.0-37.0) g/dL RDW 13.1 (11.5-15.5) % Plt Count 400 (150-450) k/uL MPV 6.3 Neutrophils % 65 % Lymphocytes % 26 % Monocytes % 6 % Eosinophils % 1 % Basophils % 1 % Neutrophils # 5.3 (1.3-7.7) k/uL Lymphocytes # 2.2 (1.0-4.8) k/uL Monocytes # 0.5 (0-1.0) k/uL Eosinophils # 0.1 (0-0.7) k/uL Basophils # 0.1 (0-0.2) k/uL PT 10.7 (10.0-12.5) sec INR 1.0 (<1.2) APTT 23.0 (22.0-30.0) sec D-Dimer 0.24 (<0.60) mg/L FEU Sodium 140 (137-145) mmol/L Potassium 3.6 (3.5-5.1) mmol/L Chloride 106 (98-107) mmol/L Carbon Dioxide 22 (22-30) mmol/L Anion Gap 12 mmol/L BUN 10 (9-20) mg/dL Creatinine 0.76 (0.66-1.25) mg/dL Est GFR (CKD-EPI)AfAm >90 (>60 ml/min/1.73 sqM) Est GFR (CKD-EPI)NonAf >90 (>60 ml/min/1.73 sqM) Glucose 96 (74-99) mg/dL Calcium 9.0 (8.4-10.2) mg/dL Magnesium 2.1 (1.6-2.3) mg/dL Total Bilirubin 0.6 (0.2-1.3) mg/dL AST 29 (17-59) U/L ALT 41 (4-49) U/L Alkaline Phosphatase 85 (38-126) U/L Troponin I (0.000-0.034) ng/mL Total Protein 7.7 (6.3-8.2) g/dL Albumin 4.4 (3.5-5.0) g/dL Influenza Type A (PCR) (Not Detectd) Influenza Type B (PCR) (Not Detectd) RSV (PCR) (Not Detectd) SARS-CoV-2 (PCR) (Not Detectd) 12/01/24 12/01/24 Range/Units 21:05 21:05 WBC (3.8-10.6) k/uL RBC (4.30-5.90) m/uL Hgb (13.0-17.5) gm/dL Hct (39.0-53.0) % MCV (80.0-100.0) fL MCH (25.0-35.0) pg MCHC (31.0-37.0) g/dL RDW (11.5-15.5) % Plt Count (150-450) k/uL MPV Neutrophils % % Lymphocytes % % Monocytes % % Eosinophils % % Basophils % % Neutrophils # (1.3-7.7) k/uL Lymphocytes # (1.0-4.8) k/uL Monocytes # (0-1.0) k/uL Eosinophils # (0-0.7) k/uL Basophils # (0-0.2) k/uL PT (10.0-12.5) sec INR (<1.2) APTT (22.0-30.0) sec D-Dimer (<0.60) mg/L FEU Sodium (137-145) mmol/L Potassium (3.5-5.1) mmol/L Chloride (98-107) mmol/L Carbon Dioxide (22-30) mmol/L Anion Gap mmol/L BUN (9-20) mg/dL Creatinine (0.66-1.25) mg/dL Est GFR (CKD-EPI)AfAm (>60 ml/min/1.73 sqM) Est GFR (CKD-EPI)NonAf (>60 ml/min/1.73 sqM) Glucose (74-99) mg/dL Calcium (8.4-10.2) mg/dL Magnesium (1.6-2.3) mg/dL Total Bilirubin (0.2-1.3) mg/dL AST (17-59) U/L ALT (4-49) U/L Alkaline Phosphatase (38-126) U/L Troponin I <0.012 (0.000-0.034) ng/mL Total Protein (6.3-8.2) g/dL Albumin (3.5-5.0) g/dL Influenza Type A (PCR) Not Detected (Not Detectd) Influenza Type B (PCR) Not Detected (Not Detectd) RSV (PCR) Not Detected (Not Detectd) SARS-CoV-2 (PCR) Not Detected (Not Detectd) - EKG Data -: EKG Interpreted by Me EKG Comments: EKG reveals normal sinus rhythm with no ST changes. Ventricular rate 90 bpm, IA interval 163, QRS duration 116, QT/QTc 355/403 Disposition Clinical Impression: Dizziness Disposition: HOME SELF-CARE Condition: Stable Instructions (If sedation given, give patient instructions): Dizziness (ED) Additional Instructions: Please return to the Emergency Department if symptoms worsen or any other concerns. Is patient prescribed a controlled substance at d/c from ED?: No Referrals: Georgia Soto DO [Primary Care Provider] - 1-2 days Time of Disposition: 22:43
[2024-12-01 21:13] LABS: Basophils # (A) 0.1 k/uL (0-0.2); Basophils % (A) 1 %; Eosinophils # (A) 0.1 k/uL (0-0.7); Eosinophils % (A) 1 %; HCT 39.5 % (39.0-53.0); HGB 13.4 gm/dL (13.0-17.5); Lymphocytes # (A) 2.2 k/uL (1.0-4.8); Lymphocytes % (A) 26 %; MCH 28.7 pg (25.0-35.0); MCHC 33.9 g/dL (31.0-37.0); MCV 84.5 fL (80.0-100.0); Mean Platelet Volume 6.3; Monocytes # (A) 0.5 k/uL (0-1.0); Monocytes % (A) 6 %; Neutrophils # (A) 5.3 k/uL (1.3-7.7); Neutrophils % (A) 65 %; Platelet Count 400 k/uL (150-450); RBC 4.67 m/uL (4.30-5.90); RDW 13.1 % (11.5-15.5); WBC 8.3 k/uL (3.8-10.6)
[2024-12-01] MEDS: SODIUM CHLORIDE 0.9% 500 ML 500 ML IV STA (21:26)
[2024-12-01 21:27] LABS: Prothrombin Time 10.7 sec (10.0-12.5)
--- NOTE | 2024-12-01 21:31 | XR ---
EXAMINATION TYPE: XR chest 2V DATE OF EXAM: 12/01/2024 9:22 PM COMPARISON: 09/04/2024 CLINICAL INDICATION: Male, 34 years old with history of chest pain, TECHNIQUE: XR chest 2V view(s) obtained. Anterior portion of the chest on the lateral projection is l imited due to technique FINDINGS: The heart size is normal. The pulmonary vasculature is normal. The lungs are clear. IMPRESSION: 1. No acute pulmonary process. [facility], Workstation: [facility], 12/01/2024 9:28 PM
[2024-12-01 21:46] LABS: ALT 41 U/L (4-49); AST 29 U/L (17-59); African American GFR (CKD) >90 (>60 ml/min/1.73 sqM); Albumin 4.4 g/dL (3.5-5.0); Alkaline Phosphatase 85 U/L (38-126); Anion Gap 12 mmol/L; Blood Urea Nitrogen 10 mg/dL (9-20); Carbon Dioxide 22 mmol/L (22-30); Chloride 106 mmol/L (98-107); Glucose 96 mg/dL (74-99); Magnesium 2.1 mg/dL (1.6-2.3); Non-African American GFR(CKD) >90 (>60 ml/min/1.73 sqM); Potassium 3.6 mmol/L (3.5-5.1); Sodium 140 mmol/L (137-145); Total Bilirubin 0.6 mg/dL (0.2-1.3); Total Protein 7.7 g/dL (6.3-8.2)
[2024-12-01 21:48] LABS: Influenza A Not Detected (Not Detectd); Influenza B Not Detected (Not Detectd); RSV Not Detected (Not Detectd)
[2024-12-01 22:50] VITALS: BP 130/90; PULSE 76; RESP 17; TEMP 98.5
== END 2024-12-01 22:58 | disposition home or self-care (01) ==
LOC: EC 19:39
DX: R42 Dizziness and giddiness (principal); F17.200 Nicotine dependence, unspecified, uncomplicated
CPT/HCPCS: 36415; 71046; 80053; 83735; 84484; 85025; 85379; 85610; 85730; 87636; 93005; 96360; 99285

== ENCOUNTER 2025-03-18 07:38 | Inpatient (IN) | payer BC ==
--- NOTE | 2025-03-18 08:14 | ED ---
General Adult HPI - General Chief complaint: Chest Pain Stated complaint: Afib SOB Time Seen by Provider: 03/18/25 07:50 Source: patient, family, RN notes reviewed, old records reviewed Mode of arrival: ambulatory Limitations: no limitations - History of Present Illness Initial comments: This is a 34-year-old male with a past medical history significant for atrial fibrillation. Patient states he only takes an aspirin and metoprolol for it. Patient states he is working denies any chest pain patient denies any shortness of breath. Patient denies any recent fever chills or cough. Patient Nu[place] any abdominal pain patient has back pain - Related Data Previous Rx's Medication Instructions Recorded Aspirin 81 mg PO DAILY tab 09/05/24 Metoprolol Succinate (ER) [Toprol 25 mg PO DAILY #90 tab 09/05/24 XL] Allergies Allergy/AdvReac Type Severity Reaction Status Date / Time No Known Allergies Allergy Verified 12/01/24 19:42 Review of Systems ROS Statement: Those systems with pertinent positive or pertinent negative responses have been documented in the HPI. ROS Other: All systems not noted in ROS Statement are negative. Past Medical History Past Medical History: Atrial Fibrillation, Hypertension History of Any Multi-Drug Resistant Organisms: None Reported Additional Past Surgical History / Comment(s): varicose vein removal 2022 left lower extremity, high function Autism Past Psychological History: No Psychological Hx Reported, ADD/ADHD, Depression Smoking Status: Current some day smoker Past Alcohol Use History: Rare Past Drug Use History: Marijuana General Exam - General Exam Comments Initial Comments: GENERAL: Patient is well-developed and well-nourished. Patient is nontoxic and well- hydrated and is in mild distress. ENT: Neck is soft and supple. No significant lymphadenopathy is noted. Oropharynx is clear. Moist mucous membranes. Neck has full range of motion without eliciting any pain. EYES: The sclera were anicteric and conjunctiva were pink and moist. Extraocular movements were intact and pupils were equal round and reactive to light. Eyelids were unremarkable. PULMONARY: Unlabored respirations. Good breath sounds bilaterally. No audible rales rhonchi or wheezing was noted. CARDIOVASCULAR: Patient is tachycardic at 160 bpm ABDOMEN: Soft and nontender with normal bowel sounds. SKIN: Skin is clear with no lesions or rashes and otherwise unremarkable. NEUROLOGIC: Patient is alert and oriented x3. Cranial nerves II through XII are grossly intact. Motor and sensory are also intact. Normal speech, volume and content. Symmetrical smile. MUSCULOSKELETAL: Normal extremities with adequate strength and full range of motion. No lower extremity swelling or edema. No calf tenderness. LYMPHATICS: No significant lymphadenopathy is noted PSYCHIATRIC: Normal psychiatric evaluation. Limitations: no limitations Course Vital Signs 03/18/25 07:47 Temperature 97.6 F Pulse Rate 165 H Respiratory 20 Rate Blood Pressure 113/79 O2 Sat by Pulse 98 Oximetry Medical Decision Making - Medical Decision Making EKG is interpreted by myself. EKG shows atrial flutter at 163 bpm QRS is 100 QT interval is 282 QTc is 372. EKG does not show any significant ST segment elevation Was pt. sent in by a medical professional or institution (, [facility]I, [facility], urgent care, hospital, or detention...) When possible be specific @ -No Did you speak to anyone other than the patient for history (EMS, parent, family, police, friend...)? What history was obtained from this source @ -No Did you review nursing and triage notes (agree or disagree)? Why? @ -I reviewed and agree with nursing and triage notes Were old charts reviewed (outside hosp., previous admission, EMS record, old EKG, old radiological studies, urgent care reports/EKG's, detention records)? Report findings @ -No old charts were reviewed Differential Diagnosis? @ -Differential Palpitations Ventricular arrhythmias, atrial arrhythmias, myocardial infarction, anemia, thyrotoxicosis, electrolyte imbalance, hypokalemia, pulmonary embolism, pulmonary disease, drugs, alcohol, anxiety, stress.... This is not meant to be an all-inclusive list. EKG interpreted by me (3pts min.). @ -As above X-rays interpreted by me (1pt min.). @ -Chest x-ray shows no acute abnormality CT interpreted by me (1pt min.). @ -None done U/S interpreted by me (1pt. min.). @ -None done What testing was considered but not performed or refused? (CT, X-rays, U/S, labs)? Why? @ -None What meds were considered but not given or refused? Why? @ -None Did you discuss the management of the patient with other professionals (professionals i.e. SARAHI Taylor, [facility]AND[facility], lab, RT, psych nurse, psychosocial rehabilitation counselor, jigsawyer, teacher, planned giving officer, window caser)? Give summary @ -I spoke with [facility] hospitalist agreed admit the patient Was smoking cessation discussed for >3mins.? @ -No Was critical care preformed (if so, how long)? @ -35 minutes Were there social determinants of health that impacted care today? How? (Homelessness, low income, unemployed, alcoholism, drug addiction, transportation, low edu. Level, literacy, decrease access to med. care, long term, rehab)? @ -No Was there de-escalation of care discussed even if they declined (Discuss DNR or withdrawal of care, Hospice)? DNR status @ -No What co-morbidities impacted this encounter? (DM, HTN, Smoking, COPD, CAD, Cancer, CVA, ARF, Chemo, Hep., AIDS, mental health diagnosis, sleep apnea, morbid obesity)? @ -None Was patient admitted / discharged? Hospital course, mention meds given and route, prescriptions, significant lab abnormalities, going to OR and other pertinent info. @ -Patient was started on a Cardizem drip after he got a Cardizem bolus it did not slow his heart rate down so I gave him a second bolus. Patient's drip will also be increased to 10 mg/h Undiagnosed new problem with uncertain prognosis? @ -No Drug Therapy requiring intensive monitoring for toxicity (Heparin, Nitro, Insulin, Cardizem)? @ -No Were any procedures done? @ -No Diagnosis/symptom? @ -Atrial flutter with rapid ventricular response Acute, or Chronic, or Acute on Chronic? @ -Acute Uncomplicated (without systemic symptoms) or Complicated (systemic symptoms)? @ -Complicated Side effects of treatment? @ -No Exacerbation, Progression, or Severe Exacerbation? @ -No Poses a threat to life or bodily function? How? (Chest pain, [place], [place], pneumonia, PE, COPD, DKA, ARF, appy, cholecystitis, CVA, Diverticulitis, Homicidal, Suicidal, threat to staff... and all critical care pts) @ -Yes this can lead to hypoperfusion and endorgan dysfunction - Lab Data Result diagrams: 03/18/25 08:01 03/18/25 08:01 Lab Results 03/18/25 03/18/25 03/18/25 Range/Units 08:01 08:01 08:01 WBC 12.29 H (4.50-10.00) 10*3/uL RBC 5.32 (4.40-5.60) 10*6/uL Hgb 15.2 (13.0-17.0) g/dL Hct 44.7 (39.6-50.0) % MCV 84.0 (80.0-97.0) fL MCH 28.6 (27.0-32.0) pg MCHC 34.0 (32.0-37.0) g/dL Plt Count 343 (140-440) 10*3/uL MPV 8.6 L (9.5-12.2) fL Immature Gran % (Auto) 0.2 % Neutrophils % 68.0 % Lymphocytes % 19.4 % Monocytes % 10.5 % Eosinophils % 1.2 % Basophils % 0.7 % Immature Gran # 0.03 (0.00-0.04) 10*3/uL Neutrophils # 8.35 H (1.80-7.70) 10*3/uL Lymphocytes # 2.39 (0.90-5.00) 10*3/uL Monocytes # 1.29 H (0.20-1.00) 10*3/uL Eosinophils # 0.15 (0.04-0.35) 10*3/uL Basophils # 0.08 (0.00-0.10) 10*3/uL PT 10.4 (10.0-12.5) sec INR 0.9 (<1.2) APTT 23.6 (22.0-30.0) sec Sodium 140 (137-145) mmol/L Potassium 3.7 (3.5-5.1) mmol/L Chloride 109 H (98-107) mmol/L Carbon Dioxide 18 L (22-30) mmol/L Anion Gap 13 mmol/L BUN 12 (9-20) mg/dL Creatinine 0.74 (0.66-1.25) mg/dL Est GFR (CKD-EPI)AfAm >90 (>60 ml/min/1.73 sqM) Est GFR (CKD-EPI)NonAf >90 (>60 ml/min/1.73 sqM) Glucose 103 H (74-99) mg/dL Calcium 8.8 (8.4-10.2) mg/dL Magnesium 1.9 (1.6-2.3) mg/dL Total Bilirubin 0.9 (0.2-1.3) mg/dL AST 27 (17-59) U/L ALT 34 (4-49) U/L Alkaline Phosphatase 79 (38-126) U/L Troponin I (0.000-0.034) ng/mL Total Protein 7.7 (6.3-8.2) g/dL Albumin 4.3 (3.5-5.0) g/dL TSH 0.934 (0.465-4.680) mIU/L Urine Opiates Screen (NotDetected) Ur Oxycodone Screen (NotDetected) Urine Methadone Screen (NotDetected) Ur Barbiturates Screen (NotDetected) U Tricyclic Antidepress (NotDetected) Ur Phencyclidine Scrn (NotDetected) Ur Amphetamines Screen (NotDetected) U Methamphetamines Scrn (NotDetected) U Benzodiazepines Scrn (NotDetected) Urine Cocaine Screen (NotDetected) U Marijuana (THC) Screen (NotDetected) 03/18/25 03/18/25 Range/Units 08:01 09:10 WBC (4.50-10.00) 10*3/uL RBC (4.40-5.60) 10*6/uL Hgb (13.0-17.0) g/dL Hct (39.6-50.0) % MCV (80.0-97.0) fL MCH (27.0-32.0) pg MCHC (32.0-37.0) g/dL Plt Count (140-440) 10*3/uL MPV (9.5-12.2) fL Immature Gran % (Auto) % Neutrophils % % Lymphocytes % % Monocytes % % Eosinophils % % Basophils % % Immature Gran # (0.00-0.04) 10*3/uL Neutrophils # (1.80-7.70) 10*3/uL Lymphocytes # (0.90-5.00) 10*3/uL Monocytes # (0.20-1.00) 10*3/uL Eosinophils # (0.04-0.35) 10*3/uL Basophils # (0.00-0.10) 10*3/uL PT (10.0-12.5) sec INR (<1.2) APTT (22.0-30.0) sec Sodium (137-145) mmol/L Potassium (3.5-5.1) mmol/L Chloride (98-107) mmol/L Carbon Dioxide (22-30) mmol/L Anion Gap mmol/L BUN (9-20) mg/dL Creatinine (0.66-1.25) mg/dL Est GFR (CKD-EPI)AfAm (>60 ml/min/1.73 sqM) Est GFR (CKD-EPI)NonAf (>60 ml/min/1.73 sqM) Glucose (74-99) mg/dL Calcium (8.4-10.2) mg/dL Magnesium (1.6-2.3) mg/dL Total Bilirubin (0.2-1.3) mg/dL AST (17-59) U/L ALT (4-49) U/L Alkaline Phosphatase (38-126) U/L Troponin I 0.021 (0.000-0.034) ng/mL Total Protein (6.3-8.2) g/dL Albumin (3.5-5.0) g/dL TSH (0.465-4.680) mIU/L Urine Opiates Screen Not Detected (NotDetected) Ur Oxycodone Screen Not Detected (NotDetected) Urine Methadone Screen Not Detected (NotDetected) Ur Barbiturates Screen Not Detected (NotDetected) U Tricyclic Antidepress Not Detected (NotDetected) Ur Phencyclidine Scrn Not Detected (NotDetected) Ur Amphetamines Screen Not Detected (NotDetected) U Methamphetamines Scrn Not Detected (NotDetected) U Benzodiazepines Scrn Not Detected (NotDetected) Urine Cocaine Screen Not Detected (NotDetected) U Marijuana (THC) Screen Not Detected (NotDetected) Disposition Clinical Impression: Atrial flutter with rapid ventricular response Disposition: ADMITTED IP TO THIS HOSP Referrals: Georgia Soto DO [Primary Care Provider] - 1-2 days Time of Disposition: 09:59
[2025-03-18 08:21] LABS: Basophils # (A) 0.08 10*3/uL (0.00-0.10); Basophils % (A) 0.7 %; Eosinophils # (A) 0.15 10*3/uL (0.04-0.35); Eosinophils % (A) 1.2 %; HCT 44.7 % (39.6-50.0); HGB 15.2 g/dL (13.0-17.0); Lymphocytes # (A) 2.39 10*3/uL (0.90-5.00); Lymphocytes % (A) 19.4 %; MCH 28.6 pg (27.0-32.0); Mean Platelet Volume 8.6 fL (9.5-12.2); Monocytes # (A) 1.29 10*3/uL (0.20-1.00); Monocytes % (A) 10.5 %; Neutrophils # (A) 8.35 10*3/uL (1.80-7.70); Platelet Count 343 10*3/uL (140-440); RBC 5.32 10*6/uL (4.40-5.60); RDW 13.6 % (11.5-14.5); WBC 12.29 10*3/uL (4.50-10.00)
[2025-03-18 08:35] LABS: ALT 34 U/L (4-49); AST 27 U/L (17-59); African American GFR (CKD) >90 (>60 ml/min/1.73 sqM); Albumin 4.3 g/dL (3.5-5.0); Alkaline Phosphatase 79 U/L (38-126); Anion Gap 13 mmol/L; Blood Urea Nitrogen 12 mg/dL (9-20); Calcium 8.8 mg/dL (8.4-10.2); Carbon Dioxide 18 mmol/L (22-30); Chloride 109 mmol/L (98-107); Glucose 103 mg/dL (74-99); Magnesium 1.9 mg/dL (1.6-2.3); Non-African American GFR(CKD) >90 (>60 ml/min/1.73 sqM); Potassium 3.7 mmol/L (3.5-5.1); Sodium 140 mmol/L (137-145); Total Bilirubin 0.9 mg/dL (0.2-1.3); Total Protein 7.7 g/dL (6.3-8.2)
[2025-03-18 08:36] LABS: INR 0.9 (<1.2); Partial Thromboplastin Time 23.6 sec (22.0-30.0); Prothrombin Time 10.4 sec (10.0-12.5)
[2025-03-18] MEDS: MAGNESIUM SULFATE-D5W PMX 1 GM in DEXTROSE/WATER 1 100ML.BAG IVPB SCH (08:53)
[2025-03-18] MEDS: DILTIAZEM 5 MG/ML 5 ML VIAL IVP STA (08:54)
[2025-03-18] MEDS: DILTIAZEM 125 MG in DEXTROSE 5% IN WATER 100 ML IV SCH (09:19)
[2025-03-18 09:41] LABS: Amphetamine Screen,Urine Not Detected (NotDetected); Barbiturate Screen,Urine Not Detected (NotDetected); Benzodiazepines Screen,Urine Not Detected (NotDetected); Cocaine Screen,Urine Not Detected (NotDetected); Methadone Screen, Urine Not Detected (NotDetected); Opiate Screen,Urine Not Detected (NotDetected); Oxycodone Screen, Urine Not Detected (NotDetected); Phencyclidine Screen,Urine Not Detected (NotDetected); Tricyclic Antidepressant,Urine Not Detected (NotDetected); Urn Cannabinoid Scrn Not Detected (NotDetected)
--- NOTE | 2025-03-18 09:46 | XR ---
Chest, 2 view. CLINICAL INDICATION: Male, 34 years old with history of dysrhythmia COMPARISON: 12/01/2024 TECHNIQUE: PA and lateral views the chest are obtained. FINDINGS: The lungs are clear and there is no consolidative or interstitial opacity. There is no pleural effusion or pneumothorax. The heart, pulmonary vasculature, mediastinum and ashlee appear normal. The osseous structures are intact. IMPRESSION: No significant abnormality seen. No acute cardiopulmonary disease. [facility], , 03/18/2025 9:43 AM
[2025-03-18] MEDS ORDERED: NITROGLYCERIN SL TABS 0.4 MG TAB SUBLINGUAL PRN (09:59)
[2025-03-18] MEDS: DILTIAZEM 5 MG/ML 5 ML VIAL IVP PRN (10:18)
[2025-03-18 19:17] LABS: Basophils # (A) 0.07 10*3/uL (0.00-0.10); Basophils % (A) 0.7 %; Eosinophils # (A) 0.13 10*3/uL (0.04-0.35); Eosinophils % (A) 1.2 %; HCT 41.1 % (39.6-50.0); HGB 13.9 g/dL (13.0-17.0); Lymphocytes # (A) 2.27 10*3/uL (0.90-5.00); Lymphocytes % (A) 21.2 %; MCH 28.8 pg (27.0-32.0); MCHC 33.8 g/dL (32.0-37.0); MCV 85.1 fL (80.0-97.0); Mean Platelet Volume 8.5 fL (9.5-12.2); Monocytes % (A) 10.3 %; Neutrophils # (A) 7.09 10*3/uL (1.80-7.70); Neutrophils % (A) 66.3 %; Platelet Count 290 10*3/uL (140-440); RBC 4.83 10*6/uL (4.40-5.60); RDW 13.7 % (11.5-14.5); WBC 10.69 10*3/uL (4.50-10.00)
[2025-03-18 19:27] LABS: Partial Thromboplastin Time 23.6 sec (22.0-30.0); Prothrombin Time 11.4 sec (10.0-12.5)
[2025-03-18] MEDS: HEPARIN SOD,PORK IN 0.45% NACL 25,000 UNIT in 0.45% NACL 1 250ML.BAG IV SCH (19:57)
[2025-03-18] MEDS: PANTOPRAZOLE 40 MG/10 ML VIAL IVP SCH (20:01)
[2025-03-18] MEDS: traZODone HCL 50 MG TAB PO SCH (21:29)
[2025-03-19 00:10] LABS: Basophils # (A) 0.07 10*3/uL (0.00-0.10); Basophils % (A) 0.8 %; Eosinophils # (A) 0.11 10*3/uL (0.04-0.35); Eosinophils % (A) 1.2 %; HCT 40.9 % (39.6-50.0); HGB 13.9 g/dL (13.0-17.0); Lymphocytes # (A) 2.94 10*3/uL (0.90-5.00); Lymphocytes % (A) 31.9 %; MCV 85.2 fL (80.0-97.0); Mean Platelet Volume 8.8 fL (9.5-12.2); Monocytes # (A) 0.88 10*3/uL (0.20-1.00); Monocytes % (A) 9.5 %; Neutrophils # (A) 5.22 10*3/uL (1.80-7.70); Neutrophils % (A) 56.5 %; Platelet Count 312 10*3/uL (140-440); RDW 13.7 % (11.5-14.5); WBC 9.23 10*3/uL (4.50-10.00)
[2025-03-19 00:20] LABS: African American GFR (CKD) >90 (>60 ml/min/1.73 sqM); Anion Gap 10 mmol/L; Blood Urea Nitrogen 13 mg/dL (9-20); Calcium 8.6 mg/dL (8.4-10.2); Carbon Dioxide 24 mmol/L (22-30); Chloride 104 mmol/L (98-107); Glucose 95 mg/dL (74-99); Non-African American GFR(CKD) >90 (>60 ml/min/1.73 sqM); Potassium 3.1 mmol/L (3.5-5.1); Sodium 138 mmol/L (137-145)
[2025-03-19] MEDS ORDERED: Potassium Replacement Protocol 1 EACH MISC MISCELLANE PRN (00:33)
[2025-03-19] MEDS: POTASSIUM CHLORIDE ER 20 MEQ TAB.ER PO STA (00:50)
[2025-03-19] MEDS: HEPARIN SODIUM 1,000 UN/ML (10ML VL) IV PRN (00:50)
--- NOTE | 2025-03-19 02:03 | HP ---
HISTORY AND PHYSICAL CHIEF COMPLAINT: Chest pain and atrial fibrillation. HISTORY OF PRESENT ILLNESS: This is a 34-year-old gentleman with a past medical history of multiple problems including hypertension, atrial fibrillation, was complaining of left-sided chest pain. The patient was found to have atrial fibrillation with fast ventricular rate. The patient was given Cardizem. Patient being admitted for evaluation and treatment. Cardiology evaluation in progress. There is no history of any fever, rigors, chills at this time. PAST MEDICAL HISTORY: History of atrial fibrillation, hypertension. Rest of history and the chart is also reviewed. HOME MEDICATIONS: Reviewed include metoprolol. Dose and rest of medications reviewed. ALLERGIES: None. FAMILY HISTORY: No history of heart disease or strokes in family. SOCIAL HISTORY: The patient smoking THC. REVIEW OF SYSTEMS: Fourteen-point review of systems is negative except as mentioned earlier. PHYSICAL EXAMINATION: VITAL SIGNS: Pulse is 102, irregular. Blood pressure 99/70, respirations 20. HEENT: Conjunctivae normal. CARDIOVASCULAR: S1, S2 irregular. RESPIRATIONS: Clear to auscultation. ABDOMEN: Soft, nontender. LEGS: No edema. NERVOUS SYSTEM: Nonfocal. LABORATORY DATA: Reviewed. ASSESSMENT: 1. Atrial fibrillation with fast ventricular rate. 2. Troponin 0.036. Possible acute [id number] elevation myocardial infarction. 3. Elevated WBC. 4. Hypertension. 5. History of attention-deficit/hyperactivity disorder, depression. 6. History of autism. 7. History of nicotine dependence. RECOMMENDATIONS: This 34-year-old gentleman presented with multiple complex medical issues. We will monitor the patient closely. Continue with current medications. Continue with Cardizem at this time. I would also recommend continue with antiplatelet agents. Follow with Cardiology. 2D echo with Doppler. Resume the home medications. Guarded prognosis because of multiple complex medical issues. Further recommendations to follow. MMODL / IJN: [id number] /
--- NOTE | 2025-03-19 08:02 | P.CRDCN ---
History of Present Illness Consult date: 03/19/25 History of present illness: The patient is a pleasant 34-year-old gentleman who is known to our service from before with a past medical history significant for history of atrial flutter and also overweight but no sleep apnea presented to the hospital complaining of ches t discomfort. He was in his usual state of health till yesterday when he woke up from sleep at 6:30 in the morning complaining of discomfort in the chest associated with heart racing and fluttering but no dizziness or lightheadedness and no presyncope or syncope and no symptoms of chest pain or chest discomfort or shortness of breath. He presented to the hospital where he underwent further evaluation including an EKG showing atrial flutter with RVR. Subsequently he was started on Cardizem IV with conversion to normal sinus mechanism subsequently. He has been maintaining sinus mechanism since then. He stated that he has been compliant with the current dose of beta-khoi he was receivin g metoprolol XL 25 mg p.o. daily and he underwent further evaluation and sleep apnea was ruled out as an outpatient. The most recent echo from 2019 for September showed normal LV systolic function with no significant valvular abnormalities. On today evaluation he underwent also troponin came to be abnormal. No history of CAD and no history of heart failure. The physical examination is remarkable for regular rhythm with a systolic murmur at the right upper sternal border with clear breathing sounds bilaterally and no edema was noted Assessment Atrial flutter currently the patient is in normal sinus mechanism Evidence of myocardial injury associated with chest discomfort Overweight Plan DC Cardizem IV and start the patient on Toprol-XL at 50 mg p.o. daily Continue aspirin Rule out severe CAD by performing a heart catheterization Follow-up with the patient Past Medical History Past Medical History: Atrial Fibrillation, Hypertension History of Any Multi-Drug Resistant Organisms: None Reported Additional Past Surgical History / Comment(s): varicose vein removal 2022 left lower extremity, high function Autism Past Psychological History: No Psychological Hx Reported, ADD/ADHD, Depression Additional Psychological History / Comment(s): autism Smoking Status: Current some day smoker Past Alcohol Use History: Rare Past Drug Use History: Marijuana Medications and Allergies Home Medications Medication Instructions Recorded Confirmed Type Aspirin 81 mg PO DAILY tab 09/05/24 03/18/25 Rx Metoprolol Succinate (ER) [Toprol 25 mg PO DAILY #90 tab 09/05/24 03/18/25 Rx XL] traZODone HCL [Desyrel] 50 mg PO HS 03/18/25 03/18/25 History Allergies Allergy/AdvReac Type Severity Reaction Status Date / Time No Known Allergies Allergy Verified 03/18/25 13:20 Physical Exam Vitals: Vital Signs Temp Pulse Pulse Resp BP BP Pulse Ox 03/19/25 04:00 91 18 110/65 96 03/19/25 00:00 97.8 F 92 18 112/72 95 03/18/25 21:45 18 03/18/25 20:03 94 18 106/76 97 03/18/25 17:00 94 16 96 03/18/25 16:13 102 H 20 99/76 97 03/18/25 16:00 96 15 96 03/18/25 15:00 114 H 16 110/77 95 03/18/25 14:14 111 H 20 97 03/18/25 13:35 103 H 18 101/65 97 03/18/25 10:52 118 H 03/18/25 10:50 116 H 18 91/69 96 03/18/25 10:19 161 H 20 111/85 96 Intake and Output 03/18/25 03/19/25 03/19/25 22:59 06:59 14:59 Intake Total 220.25 250.000 57.132 Balance 220.25 250.000 57.132 Intake: Intake, IV Titration 120.25 250.000 57.132 Amount Diltiazem 125 mg In 120.25 Dextrose 5% in Water 100 ml @ 5 MG/HR 5 mls/hr IV .Q24H [facility] Rx#:[id number] Heparin Sod,Pork in 0.45% 250.000 57.132 NaCl 25,000 unit In 0.45 % NaCl 1 250ml.bag @ 15. 846 UNITS/KG/HR 23 mls/hr IV .[id number] [facility] Rx#: [id number] Oral 100 Other: Voiding Method Toilet Toilet # Voids 1 Weight 145.15 kg 145.1 kg Results 03/19/25 00:00 03/19/25 00:00 Cardiac Enzymes 03/18/25 03/18/25 03/18/25 Range/Units 08:01 08:01 10:39 AST 27 (17-59) U/L Troponin I 0.021 0.030 (0.000-0.034) ng/mL 03/18/25 Range/Units 14:46 AST (17-59) U/L Troponin I 0.036 H* (0.000-0.034) ng/mL Coagulation 03/18/25 03/18/25 03/18/25 Range/Units 08:01 19:03 23:47 PT 10.4 11.4 (10.0-12.5) sec APTT 23.6 23.6 28.4 (22.0-30.0) sec 03/19/25 Range/Units 06:34 PT (10.0-12.5) sec APTT 101.5 H* (22.0-30.0) sec CBC 03/18/25 03/18/25 03/19/25 Range/Units 08:01 19:03 00:00 WBC 12.29 H 10.69 H 9.23 (4.50-10.00) 10*3/uL RBC 5.32 4.83 4.80 (4.40-5.60) 10*6/uL Hgb 15.2 13.9 13.9 (13.0-17.0) g/dL Hct 44.7 41.1 40.9 (39.6-50.0) % Plt Count 343 290 312 (140-440) 10*3/uL Comprehensive Metabolic Panel 03/18/25 03/19/25 Range/Units 08:01 00:00 Sodium 140 138 (137-145) mmol/L Potassium 3.7 3.1 L (3.5-5.1) mmol/L Chloride 109 H 104 (98-107) mmol/L Carbon Dioxide 18 L 24 (22-30) mmol/L BUN 12 13 (9-20) mg/dL Creatinine 0.74 0.84 (0.66-1.25) mg/dL Glucose 103 H 95 (74-99) mg/dL Calcium 8.8 8.6 (8.4-10.2) mg/dL AST 27 (17-59) U/L ALT 34 (4-49) U/L Alkaline Phosphatase 79 (38-126) U/L Total Protein 7.7 (6.3-8.2) g/dL Albumin 4.3 (3.5-5.0) g/dL Current Medications Generic Name Dose Route Start Last Admin Trade Name Freq PRN Reason Stop Dose Admin Aspirin 325 mg 03/19/25 09:00 Aspirin 325 Mg Tab PO DAILY [facility] Heparin Sodium (Porcine) 0 unit 03/18/25 18:04 03/19/25 00:50 Heparin Sodium 1,000 Un/Ml (10ml Vl) IV 11,600 unit PER PROTOCOL PRN Administration Low PTT Protocol Diltiazem HCl 125 mg/ Dextrose 125 mls @ 5 mls/hr 03/18/25 08:15 03/19/25 01:15 /Water IV 10 mg/hr .Q24H JOSEPH 10 mls/hr Administration Protocol 5 MG/HR Heparin Sodium/Sodium Chloride 250 mls @ 23 mls/hr 03/18/25 18:15 03/19/25 07:54 25,000 unit/ Sodium Chloride IV 0 units/kg/hr .[id number] JOSEPH 0 mls/hr Titration Protocol 15.846 UNITS/KG/HR Miscellaneous Information 1 each 03/19/25 00:33 Potassium Replacement Protocol 1 Each Misc MISCELLANE DAILY PRN Per Protocol Protocol Nitroglycerin 0.4 mg 03/18/25 09:59 Nitroglycerin Sl Tabs 0.4 Mg Tab SUBLINGUAL Q5M PRN Chest Pain Pantoprazole Sodium 40 mg 03/18/25 18:08 03/18/25 20:01 Pantoprazole 40 Mg/10 Ml Vial IVP 40 mg BID JOSEPH Administration Trazodone HCl 50 mg 03/18/25 21:00 03/18/25 21:29 Trazodone Hcl 50 Mg Tab PO 50 mg HS JOSEPH Administration Intake and Output 03/18/25 03/19/25 03/19/25 22:59 06:59 14:59 Intake Total 220.25 250.000 57.132 Balance 220.25 250.000 57.132 Intake: Intake, IV Titration 120.25 250.000 57.132 Amount Diltiazem 125 mg In 120.25 Dextrose 5% in Water 100 ml @ 5 MG/HR 5 mls/hr IV .Q24H [facility] Rx#:[id number] Heparin Sod,Pork in 0.45% 250.000 57.132 NaCl 25,000 unit In 0.45 % NaCl 1 250ml.bag @ 15. 846 UNITS/KG/HR 23 mls/hr IV .[id number] [facility] Rx#: [id number] Oral 100 Other: Voiding Method Toilet Toilet # Voids 1 Weight 145.15 kg 145.1 kg 03/19/25 00:00 03/19/25 00:00
[2025-03-19] MEDS: METOPROLOL SUCCINATE (ER) 50 MG TAB.ER.24H PO SCH (08:27)
[2025-03-19] MEDS: ASPIRIN 325 MG TAB PO SCH (08:27)
[2025-03-19 11:18] LABS: Chol/HDL Ratio 5.56 Ratio; LDL Cholesterol,Calculated 65.3 mg/dL (0.0-131.0)
[2025-03-19] MEDS: IV FLUID CONTINUATION 1,000 ML IV ONE (14:00)
[2025-03-19] MEDS: LIDOCAINE 1% INJ 10MG/ML (20 ML MDV) SQ ONE ×2 (14:11→14:12)
[2025-03-19] MEDS: MIDAZOLAM 2 MG/2 ML VIAL IVP ONE (14:11)
[2025-03-19] MEDS: VERAPAMIL SYRINGE (5 MG/10 ML) INTRAARTER ONE (14:12)
[2025-03-19] MEDS ORDERED: RX INFO: IV CONTRAST WAS GIVEN 1 EACH MISC MISCELLANE PRN (14:23)
--- NOTE | 2025-03-19 14:25 | P.PCN ---
Date of Procedure: 03/19/25 Operative Findings: CARDIAC CATHETERIZATION PERFORMING PHYSICIAN: Jesus Ross MD, RPVI PROCEDURE PERFORMED: 1. Selective right and left coronary angiogram 2. Ultrasound-guided access of the right radial artery INDICATION: Acute non-ST elevation myocardial infarction COMPLICATION: None APPROACH: Right radial artery LEVEL OF SEDATION: Moderate with a sedation length of 12 minutes PROCEDURE DESCRIPTION: After obtaining an informed consent, the patient was brought to cardiac laboratory miller. Local anesthesia was performed using lidocaine subcutaneously. The right radial artery was cannulated using Seldinger technique, under ultrasound guidance, the guidewire passed easily, following that we advanced a 5-Ivorian sheath dilator assembly, the wire and dilator were removed and sheath was flushed. Following that, 2 mg of verapamil intra-arterial Selective right and left coronary angiogram using a 5-Ivorian JR4 and JL 3.5 catheters. The procedure was completed there was no complication. SELECTIVE CORONARY ANGIOGRAM: The right coronary artery: Large-caliber vessel and the dominant vessel appears to be angiographically Left main: Is normal The left circumflex: Large caliber vessel nondominant vessel with no evidence of high-grade stenosis The left anterior descending artery: Large caliber vessel with no evidence of high-grade stenosis CONCLUSION: 1. Normal coronary angiogram POSTPROCEDURE MANAGEMENT: Medical treatment
[2025-03-19] MEDS: IOPAMIDOL-370 100ML BTL INJ ONE (14:30)
[2025-03-19] MEDS: SODIUM CHLORIDE 0.9% 1,000 ML IV SCH (14:45)
--- NOTE | 2025-03-19 14:45 | CA ---
Transthoracic Echo Report Name: Sukhdev Jackson Age: 34 Gender: M : 1990 Exam Date: 03/19/2025 12:45 Exam Location: [facility] Ht (in): 77 Wt (lb): 320 Ordering Physician: Natasha Petersen MD Attending/Referring Phys: Wax Pourer Sofie Valderrama RDCS Procedure CPT: Indications: CAD Cardiac Hx: Technical Quality: Good Contrast 1: Total Dose (mL): Contrast 2: Total Dose (mL): MEASUREMENTS (Male / Female) Normal Values 2D ECHO LV Diastolic Diameter PLAX 5.1 cm 4.2 - 5.9 / 3.9 - 5.3 cm LV Systolic Diameter PLAX 3.7 cm IVS Diastolic Thickness 1.1 cm 0.6 - 1.0 / 0.6 - 0.9 cm LVPW Diastolic Thickness 1.1 cm 0.6 - 1.0 / 0.6 - 0.9 cm LV Relative Wall Thickness 0.4 LVOT Diameter 2.8 cm LV Diastolic Volume MOD BP 181.8 cm??? 67 - 155 / 56 - 104 cm??? LV Systolic Volume MOD BP 85.1 cm??? 22 - 58 / 19 - 49 cm??? LV Ejection Fraction MOD BP 53.2 % >= 55 % LV Cardiac Index MOD BP 2811.1 cm???/min???m??? LV Diastolic Volume MOD 4C 184.4 cm??? LV Systolic Volume MOD 4C 89.3 cm??? LV Ejection Fraction MOD 4C 51.6 % LV Cardiac Index MOD 4C 2765.0 cm???/min???m??? LV Diastolic Length 4C 9.2 cm LV Systolic Length 4C 8.0 cm LV Diastolic Volume MOD 2C 173.4 cm??? LV Systolic Volume MOD 2C 81.2 cm??? LV Ejection Fraction MOD 2C 53.1 % LV Cardiac Index MOD 2C 2676.3 cm???/min???m??? LV Diastolic Length 2C 9.5 cm LV Systolic Length 2C 7.9 cm DOPPLER AV Peak Velocity 116.0 cm/s AV Peak Gradient 5.4 mmHg AV Mean Velocity 82.3 cm/s AV Mean Gradient 3.1 mmHg AV Velocity Time Integral 20.7 cm LVOT Peak Velocity 104.9 cm/s LVOT Peak Gradient 4.4 mmHg LVOT Velocity Time Integral 19.9 cm LVOT Stroke Volume 119.4 cm??? LVOT Stroke Volume Index 43.7 ml/m??? LVOT Cardiac Index 3469.1 cm???/min???m??? AV Area Cont Eq vti 5.8 cm??? AV Area Cont Eq pk 5.4 cm??? PV Peak Velocity 66.5 cm/s PV Peak Gradient 1.8 mmHg FINDINGS Left Ventricle Left ventricular ejection fraction is estimated at 50-55 %. Mildly increased septal wall thickness. Moderately increased left ventricular diastolic volume. Severely increased left ventricular systolic volume. Mildly decreased left ventricular ejection fraction. No obvious regional wall motion abnormalities. Right Ventricle Normal right ventricular size and function. Unable to estimate the right ventricular systolic pressure. Right Atrium Left Atrium Mitral Valve Structurally normal mitral valve. No evidence for mitral valve prolapse. No mitral stenosis. Trace mitral regurgitation. Aortic Valve Trileaflet aortic valve. No aortic valve stenosis or regurgitation. Tricuspid Valve Structurally normal tricuspid valve. No tricuspid stenosis. No tricuspid regurgitation. Pulmonic Valve Structurally normal pulmonic valve. No pulmonic stenosis. Trace pulmonic regurgitation. Pericardium Trace pericardial effusion. Aorta Moderately dilated aortic annulus. Mildly dilated proximal ascending aorta (tube). CONCLUSIONS Normal LV systolic function Trace pericardial effusion Previewed by: Dr. Jesus Ross MD (Electronically Signed) Final Date: 19 Mar 2025 14:45
[2025-03-19 16:24] VITALS: RESP 18
[2025-03-19] MEDS: ACETAMINOPHEN TAB 325 MG TAB PO PRN (16:35)
[2025-03-19] MEDS: ATORVASTATIN 10 MG TAB PO SCH (18:28)
--- NOTE | 2025-03-20 05:57 | PN ---
PROGRESS NOTE DATE OF SERVICE: 03/19/2025 SUBJECTIVE: This 34-year-old gentleman, who was admitted with chest pain as well as atrial flutter proximal, underwent cardiac cath by Cardiology, showed normal coronary angiograms. There is no history of fever or rigors. PHYSICAL EXAMINATION: VITAL SIGNS: Pulse is 81, blood pressure 118/70, respirations 18. CHEST: Clear to auscultation. CARDIAC: S1, S1. ABDOMEN: Soft, nontender. NERVOUS SYSTEM: Nonfocal. LABORATORY DATA: Potassium 3.1. Rest of the lab, troponin 0.036. Cholesterol is 260. ASSESSMENT: 1. Atrial fibrillation with fast ventricular rate proximal, currently normal sinus rhythm. 2. Troponin 0.036. Possible acute xuw-LI-cxgqdje-elevation myocardial infarction, status post cardiac cath showing normal coronary arteries. 3. Elevated WBC. 4. Hyperlipidemia. 5. Hypertension. 6. History attention-deficit/hyperactivity disorder. 7. History of autism. 8. History of nicotine dependence. RECOMMENDATIONS: Continue current management and treatment. Otherwise, continue with antiplatelet agents. Continue with Cardizem. Also add Lipitor to the current regimen. Beta blockers. Closely follow with Cardiology. Guarded prognosis. Further recommendations to follow. MMODL / IJN: [id number] /
[2025-03-20 06:37] LABS: Basophils # (A) 0.07 10*3/uL (0.00-0.10); Eosinophils # (A) 0.18 10*3/uL (0.04-0.35); Eosinophils % (A) 2.6 %; HCT 38.1 % (39.6-50.0); HGB 12.7 g/dL (13.0-17.0); Lymphocytes # (A) 2.34 10*3/uL (0.90-5.00); Lymphocytes % (A) 33.8 %; MCH 28.5 pg (27.0-32.0); MCHC 33.3 g/dL (32.0-37.0); MCV 85.6 fL (80.0-97.0); Mean Platelet Volume 8.6 fL (9.5-12.2); Monocytes # (A) 0.72 10*3/uL (0.20-1.00); Monocytes % (A) 10.4 %; Neutrophils % (A) 51.9 %; Platelet Count 283 10*3/uL (140-440); RBC 4.45 10*6/uL (4.40-5.60); RDW 13.8 % (11.5-14.5); WBC 6.93 10*3/uL (4.50-10.00)
[2025-03-20 07:00] LABS: ALT 27 U/L (4-49); AST 20 U/L (17-59); African American GFR (CKD) >90 (>60 ml/min/1.73 sqM); Albumin 3.4 g/dL (3.5-5.0); Alkaline Phosphatase 68 U/L (38-126); Anion Gap 7 mmol/L; Blood Urea Nitrogen 11 mg/dL (9-20); Calcium 8.1 mg/dL (8.4-10.2); Carbon Dioxide 22 mmol/L (22-30); Chloride 110 mmol/L (98-107); Glucose 102 mg/dL (74-99); Non-African American GFR(CKD) >90 (>60 ml/min/1.73 sqM); Potassium 3.6 mmol/L (3.5-5.1); Sodium 139 mmol/L (137-145); Total Bilirubin 0.6 mg/dL (0.2-1.3); Total Protein 6.4 g/dL (6.3-8.2)
[2025-03-20 10:23] VITALS: TEMP 97.7
--- NOTE | 2025-03-20 11:23 | P.PN ---
Subjective Progress Note Date: 03/20/25 The patient is a pleasant 34-year-old gentleman who is known to our service from before with a past medical history significant for history of atrial flutter and also overweight but no sleep apnea presented to the hospital complaining of chest discomfort. He was in his usual state of health till yesterday when he woke up from sleep at 6:30 in the morning complaining of discomfort in the chest associated with heart racing and fluttering but no dizziness or lightheadedness and no presyncope or syncope and no symptoms of chest pain or chest discomfort or shortness of breath. He presented to the hospital where he underwent further evaluation including an EKG showing atrial flutter with RVR. Subsequently he was started on Cardizem IV with conversion to normal sinus mechanism subsequently. He has been maintaining sinus mechanism since then. He stated that he has been compliant with the current dose of beta-khoi he was receiving metoprolol XL 25 mg p.o. daily and he underwent further evaluation and sleep apnea was ruled out as an outpatient. The most recent echo from 2019 for September showed normal LV systolic function with no significant valvular abnormalities. On today evaluation he underwent also troponin came to be abnormal. No history of CAD and no history of heart failure. The physical examination is remarkable for regular rhythm with a systolic murmur at the right upper sternal border with clear breathing sounds bilaterally and no edema was noted Progress note 03/20/2025 Patient is seen and examined at bedside this a.m. Normal sinus rhythm Right radial access appears to be intact and healing well No signs of hematoma or bleeding No chest pain shortness of breath Euvolemic On exam S1-S2 audible, no murmurs, regular pulses Lungs are clear to auscultate No swelling in the legs Normal JVP No focal neurological deficits, detailed exam was not performed Assessment Atrial flutter on admission, currently sinus rhythm NSTEMI type II likely from atrial flutter, normal heart catheterization Obesity Tobacco smoker Hypertriglyceridemia Plan Continue aspirin Lipitor metoprolol 50 mg daily Patient is cleared to be discharged from cardiac standpoint Recommend outpatient follow-up with Dr. Trejo for atrial flutter ablation Smoking cessation counseling provided. Quit line information given Objective - Vital Signs Vital signs: Vital Signs Temp 97.7 F 03/20/25 08:00 Pulse 86 03/20/25 08:00 Resp 18 03/20/25 08:00 BP 122/75 03/20/25 08:00 Pulse Ox 96 03/20/25 08:00 FiO2 Intake & Output 03/19/25 03/20/25 03/20/25 18:59 06:59 18:59 Intake Total 657.132 360 Balance 657.132 360 Weight 145.2 kg Intake: IV 150 Intake, IV Titration 507.132 0 Amount Heparin Sod,Pork in 0.45% 57.132 NaCl 25,000 unit In 0.45 % NaCl 1 250ml.bag @ 15. 846 UNITS/KG/HR 23 mls/hr IV .[id number] JOSEPH Rx#: [id number] Sodium Chloride 0.9% 1, 450 0 000 ml @ 75 mls/hr IV . [id number] JOSEPH Rx#:[id number] Oral 360 Other: Voiding Method Toilet Toilet # Voids 1 1 # Bowel Movements 0 - Labs CBC & Chem 7: 03/20/25 06:22 03/20/25 06:22 Labs: Abnormal Lab Results - Last 24 Hours (Table) 03/20/25 03/20/25 Range/Units 06:22 06:22 Hgb 12.7 L (13.0-17.0) g/dL Hct 38.1 L (39.6-50.0) % MPV 8.6 L (9.5-12.2) fL Chloride 110 H (98-107) mmol/L Glucose 102 H (74-99) mg/dL Calcium 8.1 L (8.4-10.2) mg/dL Albumin 3.4 L (3.5-5.0) g/dL
[2025-03-20 15:09] VITALS: BP 115/79; PULSE 82
== END 2025-03-20 16:41 | disposition home or self-care (01) | DRG 281 ==
LOC: EC 07:38 → 3SCARD 09:59
PROVIDERS: ADMIT Hospitalist; ATTEND Hospitalist
PROC: B2111ZZ Fluoroscopy of Multiple Coronary Arteries using Low Osmolar Contrast (ICD-10-PCS; principal; 2025-03-19 13:26)
DX: I48.92 Unspecified atrial flutter (principal); F84.0 Autistic disorder; I21.A1 Myocardial infarction type 2; I31.39 Other pericardial effusion (noninflammatory); I10 Essential (primary) hypertension; E66.9 Obesity, unspecified; F32.A Depression, unspecified; I48.91 Unspecified atrial fibrillation; F90.9 Attention-deficit hyperactivity disorder, unspecified type; Z79.82 Long term (current) use of aspirin; E78.1 Pure hyperglyceridemia; Z68.38 Body mass index [BMI] 38.0-38.9, adult
CPT/HCPCS: 36415; 71046; 80048; 80053; 80061; 80306; 83735; 84443; 84484; 85025; 85610; 85730; 93005; 93306; 93454; 96365; 96366; 96367; 96368; 96375; 99291